=== PATIENT | male | born 1950 | race Caucasian/White ===

== ENCOUNTER 2024-01-03 16:37 | Inpatient (IN) | payer MEDICARE, SELFPAY ==
[2024-01-03] VITALS (15 sets, daily range): BP systolic 79–98; BP diastolic 55–74; BMI 19.5; BMI 20.3; BMI 20.8
[2024-01-03 12:46] LABS: % Basophils 0.6 % (0-2); % Eosinophils 0.9 % (0-6); % Immature Granulocytes 0.5 % (0-0.5); % Lymphocytes 15.7 % (20.5-51.1); % Monocytes 5.6 % (1.7-9.3); % Neutrophils 76.7 % (42.2-75.2); Absolute Basophils 0.1 10^3/uL (0-0.2); Absolute Eosinophils 0.1 10^3/uL (0-0.7); Absolute Lymphocytes 1.3 10^3/uL (1.2-3.4); Absolute Monocytes 0.5 10^3/uL (0.1-0.6); Absolute Neutrophils 6.3 10^3/uL (1.4-6.5); Hematocrit 42.4 % (39.0-52.0); Hemoglobin 13.4 g/dL (13.0-18.0); Mean Corp Hgb Conc. 31.6 g/dL (33.0-37.0); Mean Corpuscular Hgb 25.7 pg (27.0-31.0); Mean Corpuscular Volume 81.4 fL (80.0-94.0); Mean Platelet Volume 10.6 fL (7.4-10.4); Nucleated Red Blood Cells % 0 % (-); Platelet Count 205 10^3/uL (130-400); Red Blood Cell Count 5.21 10^6/uL (4.70-6.10); Red Cell Dist. Width 25.6 % (11.5-14.5); White Blood Cell Count 8.2 10^3/uL (4.8-10.8)
[2024-01-03 13:09] LABS: ALT (SGPT) 16 U/L (0-50); AST (SGOT) 25 U/L (17-59); Albumin 4.3 g/dl (3.5-5.0); Alkaline Phosphatase 68 U/L (38-126); Blood Urea Nitrogen 43 mg/dl (9-20); Calcium 9.3 mg/dl (8.4-10.2); Carbon Dioxide 27 mmol/L (22-30); Chloride 98 mmol/L (98-107); Glucose 109 mg/dl (70-99); Potassium 5.4 mmol/L (3.5-5.1); Sodium 133 mmol/L (135-145); Total Bilirubin 1.6 mg/dl (0.2-1.3); Total Protein 6.6 g/dl (6.3-8.2); eGFR 41.78
--- NOTE | 2024-01-03 13:20 | ED.GENMED ---
History of Present Illness
General
Chief Complaint: Blood Pressure Problem
Source: patient and records
Exam Limitations: none
Time Seen by Provider: 01/03/24 13:19
Nursing documentation reviewed up to this point in time: agreed with
Travel History
Have you had any contact with someone who has COVID-19?: No
Do you have any symptoms of coronavirus? Fever > 100 degrees, chills, cough, shortness of breath, sore throat, loss of taste or smell, muscle aches, or headache?: No
History of Present Illness
History of Present Illness:
73-year-old male past medical history of A-fib on Eliquis, GERD, CHF on daily Lasix presenting emergency department today with concerns of low blood pressure. Patient states that he has had lower blood pressure for the past few months. Patient
states that he normally lives at 100 systolically, however this morning when he took his blood pressure, he noticed that his blood pressure was 70/62 and he felt super dizzy and lightheaded. He states that a lot of [place] are in the [place] but he was down this way for his 's appointment and he states he was too weak to drive home. He also notes a decreased appetite, abdominal pain, nausea that he has had for many months, he is currently being worked up for possible stomach
cancer and has a endoscopy scheduled and abdominal CT scheduled. Patient denies fevers or chills, chest pain, shortness of breath.
Past History
Past History
ED Past Medical History: Arrthythmia (Atrial fibrillation), Cancer (Bladder), CHF, GERD, HTN, Hypercholesterolemia, NIDDM and Other (Peptic ulcer disease, anemia, kidney stones, polyps, gastric bypass)
Review of Systems
Review of Systems
All Other Systems: ROS reviewed and negative except as documented in HPI and ROS
Phy Exam
Physical Exam
Physical Exam:
Vitals: Patient is hypotensive, otherwise his vitals are stable. He is afebrile.
General: Patient appears chronically ill but in no acute distress
Skin: Patient's skin is pale, but no rashes or lesions
Head: Normocephalic, atraumatic
Eyes: Sclera nonicteric
Cardiac: Regular rate and rhythm with no murmurs, rubs, or gallops
Peripheral vascular: No lower extremity swelling, 2+ results pedis pulses bilaterally
Pulm: Normal respiratory effort, no wheezes, rales, rhonchi heard on exam
Abdomen: Patient is no abdominal tenderness palpation, no palpable masses
Neuro: Cranial nerves II-XII intact, no focal neurologic deficits.
Psychiatric: Appropriate mood and affect
Course
Orders/Labs/Results
Orders:
Orders
01/03/24 12:37
Complete Blood Count/With Diff Urgent
Comprehensive Metabolic Panel Urgent
01/03/24 13:46
Electrocardiogram (*1) Urgent
Reason for Study: Fatigue / Weakness
EKG- Treatment ONCE
01/03/24 13:58
Lactic Acid Urgent
Blood Culture Q30M
JENNIFER Source: Blood/Venous
Specimen Description:
Blood Culture Q30M
JENNIFER Source: Blood/Venous
Specimen Description:
Abnormal Lab Results
01/03/24
12:37
MCH 25.7 L pg
(27.0-31.0)
MCHC 31.6 L g/dL
(33.0-37.0)
RDW 25.6 H %
(11.5-14.5)
MPV 10.6 H fL
(7.4-10.4)
Neutrophils % 76.7 H %
(42.2-75.2)
Lymphocytes % 15.7 L %
(20.5-51.1)
Sodium 133 L mmol/L
(135-145)
Potassium 5.4 H mmol/L
(3.5-5.1)
BUN 43 H mg/dl
(9-20)
Creatinine 1.7 H mg/dL
(0.7-1.3)
Glucose 109 H mg/dl
(70-99)
Total Bilirubin 1.6 H mg/dl
(0.2-1.3)
01/03/24 12:37
01/03/24 12:37
Vital Signs
Initial and Last Documented VS:
Initial Vital Signs
Temp Pulse Resp BP
97.6 F 71 20 93/61
01/03/24 12:27 01/03/24 12:27 01/03/24 12:27 01/03/24 12:27
Last Documented Vital Signs
Temp Pulse Resp BP Pulse Ox
97.6 F 60 19 81/55 98
01/03/24 12:27 01/03/24 14:00 01/03/24 14:00 01/03/24 14:00 01/03/24 13:30
MDM/Problems Addressed
Differential Diagnosis Includes:
ddx include autonomic instability, POTS, polypharmacy, acute heart failure, renal insufficiency, adrenal insufficiency stomach cancer, symptomatic anemia
MDM/Problems Addressed:
weakness, abdominal pain, nausea, vomiting, hypotension
Chronic conditions affecting care: DM, HTN, CAD and Arrhythmia
Acute Exacerbation and/or Progression of Chronic Illness: DM, HTN, CAD and Arrhythmia
*Pulse Oximetry
Patient hypoxic: no
*EKG
Interpreted by ED Provider?: Yes
EKG Intrepretation Date: 01/03/24
Interpretation: abnormal
Comparison EKG: no comparison EKG present
Heart Rate: 68
Rate: normal
Rhythm: a-fib
[place]: normal axis
Interval: normal interval, normal QT interval and normal IL interval
QRS Pattern: normal QRS
Ischemia: no ischemia
*Tire Care Manager Interpretation
Rate: bradycardiac
Interpretation: abnormal
Heart Rate: 55
Rhythm: a-fib
*Critical Care Note
Total Time (30-74mins, 75-104mins- exclusive of procedures): Not Applicable
Data Reviewed
Review of Other/Old Records Reveals: Records and Discharge Summary (reviewed discharge summary from 07/13/23)
Patient Management
Escalation/DeEscalation of care consider admission/obs:
73-year-old male past medical history of A-fib on Eliquis, GERD, CHF on daily Lasix presenting emergency department today with concerns of low blood pressure. Patient states that he has had lower blood pressure for the past few months. Patient
states that he normally lives at 100 systolically, however this morning when he took his blood pressure, he noticed that his blood pressure was 70/62 and he felt super dizzy and lightheaded. Patient also has a variety of chronic symptoms including
abdominal pain, nausea, vomiting, significant weight loss and is currently being worked up for possible stomach cancer. Here in the emergency department, patient's CV see is unremarkable. However, his CMP demonstrates hyperkalemia, and elevated
BUN to creatinine ratio, with DEVIN. Due to his ongoing weakness, hypotension and DEVIN, we will admit patient for further workup and fluid therapy. Patient accepted by hospitalist
ED Attending Note
-
Portions of this chart may have been created with voice recognition software.� Occasional wrong word or��sound alike� substitutions may have occurred due to the inherent limitations of voice recognition software.
Discharge Plan
Departure
Patient Disposition: Admit
Date of Disposition: 01/03/24
Time of Disposition: 15:02
Admit to: Med/Surg
Admit to doctor: Dr. Linton
Presentation/result/management discussed w/ accepting MD/DO: Hospitalist
Patient with high blood pressure during this ER visit?: No
Condition: Fair
Discharge Problem:
Acute kidney injury, Weakness, Hypotension
Prescriptions:
No Action
atorvastatin 40 mg Tablet
40 mg PO HS
cyanocobalamin (vitamin B-12) 100 mcg Tablet
100 mcg PO DAILY
potassium chloride [Klor-Con 10] 10 mEq Tablet Extended Release
10 meq PO BID
carvedilol 3.125 mg Tablet
3.125 mg PO BID
ascorbic acid (vitamin C) [Vitamin C] 500 mg Tablet
500 mg PO DAILY
brimonidine 0.2 % Drops
1 drp BOTH EYES HS
vitamin B complex Tablet
1 tab PO DAILY
mirtazapine 15 mg Tablet
15 mg PO HS
timolol maleate 0.5 % Drops
1 drp BOTH EYES HS
pantoprazole 40 mg Tablet,Delayed Release (Dr/Ec)
40 mg PO BID 30 Days Qty: 60 0RF
lisinopril 2.5 mg tablet
2.5 mg PO DAILY Qty: 30 0RF
furosemide [Lasix] 40 mg tablet
40 mg PO DAILY Qty: 30 0RF
sucralfate 1 gram tablet
1 g PO ACHS Qty: 90 0RF
aspirin 81 mg Tablet,Delayed Release (Dr/Ec)
81 mg PO DAILY
dorzolamide 2 % Drops
1 drp BOTH EYES HS
Referrals:
NONE,* [Family Provider] -
Interventions
Interventions:
*Risk Screen - Suicide Last Done: 01/03/24 13:30
*General Assessment Last Done: 01/03/24 13:30
*Neglect/Abuse Screening Last Done: 01/03/24 13:30
ED- Fall Risk Assessment Last Done: 01/03/24 13:30
*ED COVID-19 Vaccine History Last Done: 01/03/24 12:27
ED- Cardiac Assessment Last Done: 01/03/24 13:30
ED- Neurological Assessment Last Done: 01/03/24 13:30
ED- Pulmonary Assessment Last Done: 01/03/24 13:30
Discharge Date and Time
Print Language: ANDORRAN
[2024-01-03 14:43] LABS: Lactic Acid 1.6 mmol/L (0.7-2.0)
--- NOTE | 2024-01-03 15:38 | HPS.HSE ---
Family Physician
-
Family Physician: * NONE
Chief Complaint
-
Acute on chronic hypotension, loss of appetite with nausea, left-sided abdominal pain
History of Present Illness
HPI: 73-year-old male past medical history notable of A-fib, GERD, CHF; p/w low blood pressure. Patient states that he has chronic low blood pressure (normally systolic in the 100s), however in the morning when he took his blood pressure, he noticed
that his blood pressure was 70/62 and he felt dizzy and lightheaded. He follows at [facility]. He drove his down for her appointment, but is now too weak to drive back.
He endorsed to significant weight loss (30 pounds) in the last 2 weeks, and chronic L sided abdomen pain, associated with significant loss of appetite, nausea and occasional vomiting.
He has been unable to keep down any p.o. meds due to nausea and vomiting.
He is seeing oncologist at [facility], and is currently being worked up for possible stomach cancer; pending endoscopy and abdominal CT.
He denies to fever/chills, chest pain, shortness of breath.
He mentioned that he recently (2 weeks ago) got a tick bite on his left thigh area.
Medical History
Past Medical History
Past Medical History: Reports Other (atrial fibrillation, CAD status post stents, CHF, bladder cancer, hypertension, GERD, peptic ulcer disease, pre-cancerous colonic polyps, gastric bypass, hypercholesteremia, kidney stones, anemia)
Past Surgical History: Reports None
Social History
Tobacco: Former Smoker
Alcohol: Occasional
Personal:
Living: With Family
Family History
Family History: Not pertinent
Allergies / Home Medications
Allergies reflects when Allergies were last updated in [facility].
Home Medications with original date entered in [facility]
Allergy/Medication List:
Allergies
Allergy/AdvReac Type Severity Reaction Status Date / Time
No Known Allergies Allergy Unverified 01/03/24 12:28
Home Medications
ascorbic acid (vitamin C) 500 mg tablet (Vitamin C) 500 mg PO DAILY Supplement 07/07/23
atorvastatin 40 mg tablet 40 mg PO HS High Cholesterol 07/07/23
brimonidine 0.2 % eye drops 1 drp BOTH EYES HS Eye Condition 07/07/23
carvedilol 3.125 mg tablet 3.125 mg PO BID Blood Pressure 07/07/23
cyanocobalamin (vitamin B-12) 100 mcg tablet 100 mcg PO DAILY Supplement 07/07/23
mirtazapine 15 mg tablet 15 mg PO HS Mental Health/Anxiety 07/07/23
potassium chloride 10 mEq tablet,extended release (Klor-Con) 10 meq PO BID Electrolyte Repletion 07/07/23
timolol maleate 0.5 % eye drops 1 drp BOTH EYES HS Eye Condition 07/07/23
vitamin B complex 1 tab PO DAILY Supplement 07/07/23
furosemide 40 mg tablet (Lasix) 40 mg PO DAILY #30 tabs 07/13/23
lisinopril 2.5 mg tablet 2.5 mg PO DAILY #30 tabs 07/13/23
pantoprazole 40 mg tablet,delayed release 40 mg PO BID 30 days #60 tabs 07/13/23
sucralfate 1 gram tablet 1 g PO ACHS #90 tabs 07/13/23
aspirin 81 mg tablet,delayed release 81 mg PO DAILY 01/03/24
dorzolamide 2 % eye drops 1 drp BOTH EYES HS 01/03/24
Review of Systems
-
Abdomen/GI: Reports See HPI, Abdominal Pain and Nausea
Physical Exam
Vital Signs
Vital Signs
Temp Pulse Resp BP Pulse Ox
36.4 C 50 19 87/60 98
01/03/24 12:27 01/03/24 15:37 01/03/24 15:37 01/03/24 15:37 01/03/24 13:30
Physical Exam
General: Well Developed, No Apparent Distress, Comfortable, Conversant, Appears Chronically Ill and Cachectic
HEENT: NormoCephalic and Atraumatic
Respiratory: Clear
Cardiac: S1/S2 and Irregular Rhythm; No Murmur or Rub
GI: Soft, Non Tender, Non Distended and Other (Scaphoid abdomen); No Organomegaly
Rectal: Deferred by Provider
Musculoskeletal: No Clubbing, No Cyanosis and No Edema
Skin: No Rash
Neuro: Awake
Psych: Calm and Intact Judgment/Insight
Laboratory Results
-
01/03/24 12:37
01/03/24 12:37
Laboratory Results
Lactic Acid 1.6 mmol/L (0.7-2.0) 01/03/24 13:58
Total Bilirubin 1.6 mg/dl (0.2-1.3) H 01/03/24 12:37
AST 25 U/L (17-59) 01/03/24 12:37
ALT 16 U/L (0-50) 01/03/24 12:37
Alkaline Phosphatase 68 U/L (38-126) 01/03/24 12:37
Data Reviewed
-
Lab Data: Labs Reviewed by me
Impression/Plan
-
HPI: 73-year-old male past medical history notable of A-fib, GERD, CHF; p/w low blood pressure. Patient states that he has chronic low blood pressure (normally systolic in the 100s), however in the morning when he took his blood pressure, he noticed
that his blood pressure was 70/62 and he felt dizzy and lightheaded. He follows at [facility]. He drove his down for her appointment, but is now too weak to drive back.
He endorsed to significant weight loss (30 pounds) in the last 2 weeks, and chronic L sided abdomen pain, associated with significant loss of appetite, nausea and occasional vomiting.
He has been unable to keep down any p.o. meds due to nausea and vomiting.
He is seeing oncologist at [facility], and is currently being worked up for possible stomach cancer; pending endoscopy and abdominal CT.
He denies to fever/chills, chest pain, shortness of breath.
He mentioned that he recently (2 weeks ago) got a tick bite on his left thigh area.
A/P:
# Acute on chronic hypotension
Admit for workup for acute hypotension
Check CRP, TSH reflex FT4, random cortisol level
Follow blood Cx, check UA reflex Cx
Check Lyme serology given patient complained of recent tick bite.
Will give 500 NSS IVF bolus and continue maintenance (gentle) IVF- using gentle IV fluid given patient has history of CHF and is on Lasix at home
Hold DEVELOPMENT ADMINISTRATOR lasix
PT OT eval for weakness
# decreased appetite, abdominal pain, nausea and possibly vomiting
# Severe protein caloric malnutrition
He follows oncology at [place]
He is awaiting work up for possible stomach cancer with an endoscopy and abdominal CT
Of note, patient had an upper endoscopy 07/10 which noted [place]-colored mucosa suspicious for short-segment Noble's esophagus. Normal stomach and anastomosis. Non-bleeding jejunal ulcer with no stigmata of bleeding.
Could consider obtaining CT AP, but would like to await serum creatinine to normalize first (given would need CT with contrast)
Continue prior to admission mirtazapine
# Likely DEVIN from dehydration/poor p.o. intake
serum creatinine 1.7, baseline from 06/2023 at 1.0
IVF as above
Hold prior to admission Lasix and low-dose lisinopril
Chronic medical conditions
# History of peptic ulcer disease/GERD
# History of gastric bypass
Continue prior to admission Protonix twice daily and Carafate
# Atrial fibrillation unspecified type
Hold DEVELOPMENT ADMINISTRATOR coreg
He no longer is on Eliquis due to cost (his outpatient automatic glove turner and former is aware of this, and is okay with holding off Eliquis)
# Coronary disease status post stents x2
# Chronic heart failure unspecified type
Hold DEVELOPMENT ADMINISTRATOR coreg and lasix due to hypotension
# Essential hypertension
Hold BP lowering meds with acute on chronic hypotension
# Bladder cancer
# Hypercholesterolemia
Continue statin
# History of kidney stones
# Anxiety/depression
Continue mirtazapine
# History of gastric bypass surgery 6 years ago
Full code
DVT prophylaxis� HSQ
[2024-01-03] MEDS: NSS 250 IV (16:24)
[2024-01-03 16:55] LABS: COVID-19 Antigen Negative (Negative)
[2024-01-03] MEDS: NSS 1000 IV (17:01)
[2024-01-03 17:32] LABS: Urine Albumin Trace (Neg - Trace); Urine Bilirubin Negative (Negative); Urine Character Slightly Cloudy (Clear); Urine Color Yellow; Urine Glucose Negative (Negative); Urine Ketone Negative (Negative); Urine Leukocyte 2+ (Negative); Urine Nitrite Negative (Negative); Urine Occult Blood Negative (Negative); Urine Urobilinogen Negative (Neg - 1+)
[2024-01-03 17:46] LABS: Urine Hyaline Cast 0-2 /LPF (0-2)
[2024-01-03 17:47] LABS: Urine Bacteria Few (Negative); Urine White Cell 30-40 /HPF (0-5)
[2024-01-03 17:59] LABS: TSH Reflex To Free T4 1.44 uIU/ml (0.47-4.68)
[2024-01-03 18:17] LABS: C-Reactive Protein < 5.00 mg/L (0.0-10.00)
[2024-01-03] MEDS: PROTONIX 40 MG PO (20:22)
[2024-01-03] MEDS: HEPARIN 5000 UNITS SC (20:22)
[2024-01-03] MEDS: LIPITOR 40 MG PO (20:22)
[2024-01-03] MEDS: CARAFATE 1 GRAM PO (20:22)
--- NOTE | 2024-01-03 20:57 | SUR.PHASEI ---
Rec'd pt from ED as new admission. Pt AAOx3, BP low as documented, 88/59, afib with rate 60s-70s. Pt denies SOB, but does c/o back, stomach and rib pain. Also c/o shooting pain down both of his legs, which he describes as feeling like electricity.
Pt has poor peripheral perfusion with the tips of the fingers on his left hand pale and cold. Pulses weak on palpation. IVF running through RUE IV as prescribed. Call whitehead within reach. Pt oriented to unit and safety mechanisms in place.
[2024-01-03] MEDS: ALPHAGAN 0.2% EYE DROPS 1 DROP BOTH EYES (21:32)
[2024-01-03] MEDS: REMERON 15 MG PO (21:32)
[2024-01-03] MEDS: TIMOPTIC 0.5% OPHTHALMIC SOLUTION 1 DROP BOTH EYES (21:32)
[2024-01-03] MEDS: TRUSOPT 2% OPHTHALMIC SOLUTION 1 DROP BOTH EYES (21:32)
[2024-01-03] MEDS: CARAFATE PO (21:33)
[2024-01-04] VITALS (43 sets, daily range): BP systolic 73–115; BP diastolic 51–80; BMI 20.8
--- NOTE | 2024-01-04 03:48 | PTCARENOTE ---
Addendum entered by Cira Valencia 01/04/24 05:28:
Low temperatures noted rectally. MICRO COMPUTER DATA PROCESSOR notified and awaiting orders
Original Note:
Pt experiencing bradycardia as low as 32. Pt denies chest pain, dizziness, SOB, but c/o being very tired. Requests orange juice. MAU Hephzeva notified of pt condition
--- NOTE | 2024-01-04 03:59 | W.PN.UPDATE ---
Addendum entered and electronically signed by MAU Garza 01/04/24 06:13:
RN notified temp of 95.7, BP 84/66 HR 47 95% RA. rR 18. K 5.5, will order. Patient seen and evaluated. Ox3, reports feeling cold and feeling dizzy with repositioning. States pain at the pubic area, difficulty with urinating, last urinated last
evening, Denies any chest pain or shortness of breath, no open wounds. will order Lokelma PO x1, Midodrine PO 5mg stat, stat Lactic acid, UA to culture, Bladder scan. Brittney jones. possible sepsis.
Patient states he is supposed to be meeting with premises technician today at [facility], prefers Cardiologists at [facility] to take care of any thing if need to done.
Original Note:
Update Note
Progress Note Update
RN notified POLICE ACADEMY INSTRUCTOR. Patient's HR went down to 30's, ranging between 30's-50's, BP 105/66, not on any antihypertensives. Per patient he had stopped Coreg few weeks ago. patient notified RN, patient was scheduled meeting with Cardiolotist tomorrow for a
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 Patient c/o of dizziness otherwise, will draw labs early. EKG now. Can consult premises technician needed.
[2024-01-04 04:14] LABS: Blood Urea Nitrogen 40 mg/dl (9-20); Calcium 8.5 mg/dl (8.4-10.2); Carbon Dioxide 24 mmol/L (22-30); Chloride 104 mmol/L (98-107); Estimated Creatinine Clearance 45 ml/min; Glucose 80 mg/dl (70-99); Magnesium 2.5 mg/dl (1.6-2.3); Potassium 5.5 mmol/L (3.5-5.1); Sodium 133 mmol/L (135-145); eGFR 57.65
[2024-01-04 04:23] LABS: Hematocrit 39.8 % (39.0-52.0); Hemoglobin 12.5 g/dL (13.0-18.0); Mean Corp Hgb Conc. 31.4 g/dL (33.0-37.0); Mean Corpuscular Hgb 26.2 pg (27.0-31.0); Mean Corpuscular Volume 83.3 fL (80.0-94.0); Mean Platelet Volume 10.6 fL (7.4-10.4); Platelet Count 155 10^3/uL (130-400); Red Blood Cell Count 4.78 10^6/uL (4.70-6.10); Red Cell Dist. Width 25.3 % (11.5-14.5); White Blood Cell Count 7.4 10^3/uL (4.8-10.8)
[2024-01-04] MEDS: LOKELMA 5 GRAM PO (05:07)
[2024-01-04] MEDS: ProAmatine 5 MG PO ×3 (06:11→12:31)
[2024-01-04] MEDS: CARAFATE 1 GRAM PO ×3 (06:12→21:42)
[2024-01-04 06:19] LABS: Lactic Acid 2.3 mmol/L (0.7-2.0)
[2024-01-04] MEDS: DUONEB 3 ML INH (06:38)
[2024-01-04 07:39] LABS: Urine Albumin Trace (Neg - Trace); Urine Bilirubin Negative (Negative); Urine Character Slightly Cloudy (Clear); Urine Color Yellow; Urine Glucose Negative (Negative); Urine Ketone Negative (Negative); Urine Leukocyte 2+ (Negative); Urine Nitrite Negative (Negative); Urine Occult Blood Trace (Negative); Urine Urobilinogen Negative (Neg - 1+)
[2024-01-04 08:01] LABS: Urine Bacteria Few (Negative); Urine Red Blood Cell 0-2 /HPF (0-2); Urine White Cell 30-40 /HPF (0-5)
[2024-01-04] MEDS: PROTONIX 40 MG PO ×2 (08:23→21:42)
[2024-01-04] MEDS: VITAMIN B-12 100 MCG PO (08:23)
[2024-01-04] MEDS: ASPIR LOW (ENTERIC COATED) 81 MG PO (08:23)
--- NOTE | 2024-01-04 08:23 | W.PN.HOSP.TC ---
Addendum entered and electronically signed by Lucy Linton MD 01/04/24 11:43:
added Flomax with holding parameter (hold for SBP < 110)
d/w Card
Although felt acute infectious cause less likely with neg CRP, Ok to start empiric Abx Ceftriaxone while await culture results.
Addendum entered and electronically signed by Lucy Linton MD 01/04/24 09:06:
# possible urinary retention form BPH
bladder scan 380 cc, RN unable to straight cath (lots of resistance).
Add finasteride, would not use Flomax until BP improves
for now, cont to monitor
Original Note:
Today's Communication/Plan
-
see A/P
Assessment / Plan
Assessment / Plan
HPI: 73-year-old male past medical history notable of A-fib, GERD, CHF; p/w low blood pressure. Patient states that he has chronic low blood pressure (normally systolic in the 100s), however in the morning when he took his blood pressure, he noticed
that his blood pressure was 70/62 and he felt dizzy and lightheaded. He follows at [facility]. He drove his down for her appointment, but is now too weak to drive back.
He endorsed to significant weight loss (30 pounds) in the last 2 weeks, and chronic L sided abdomen pain, associated with significant loss of appetite, nausea and occasional vomiting.
He has been unable to keep down any p.o. meds due to nausea and vomiting.
He is seeing oncologist at [facility], and is currently being worked up for possible stomach cancer; pending endoscopy and abdominal CT.
He denies to fever/chills, chest pain, shortness of breath.
He mentioned that he recently (2 weeks ago) got a tick bite on his left thigh area.
A/P:
# Acute on chronic hypotension likely due to dehydration
CRP neg, TSH WNL at 1.44, random cortisol level WNL at 24
Since CRP neg, infectious cause less likely
can still follow up blood Cx and urine Cx that were sent
COVID negative
Follow Lyme serology (patient endorsed recent tick bite).
s/p IVF with improved BP, observe off additional IVF given he has history of CHF and is on Lasix at home
Hold ECONOMICS TEACHER lasix
PT OT eval for weakness
# decreased appetite, abdominal pain, nausea and possibly vomiting
# Severe protein caloric malnutrition
He follows oncology at [place]
He is awaiting work up for possible stomach cancer with an endoscopy and abdominal CT
Of note, patient had an upper endoscopy 07/10 at which noted [place]-colored mucosa suspicious for short-segment Noble's esophagus. Normal stomach and anastomosis. Non-bleeding jejunal ulcer with no stigmata of bleeding.
Could consider obtaining CT AP, but would like to await serum creatinine to normalize first (given would need CT with contrast)
Continue prior to admission mirtazapine
# DEVIN from dehydration/poor p.o. intake, resolved
serum creatinine 1.7 -> 1.3, baseline from 06/2023 at 1.0
s/p IVF as above
Hold prior to admission Lasix and low-dose lisinopril
# Bradycardia with likely chronic A fib
HR in the 30's overnight
EKG with A fib but slow HR
Check echo
Card CS
Pt informed that he prefers cardiac work up at [facility]
# Mild Hyponatremia
Monitor
# Mild hyperkalemia
K level at 5.5, s/p Lokelma
# Hypothermia likely due to poor body reserve with severe protein caloric malnutrition on admission
rebecca hugger PRN
Chronic medical conditions
# History of peptic ulcer disease/GERD
# History of gastric bypass
Continue prior to admission Protonix twice daily and Carafate
# Atrial fibrillation unspecified type
Hold ECONOMICS TEACHER coreg
He no longer is on Eliquis due to cost (his outpatient dispensing audiologist is aware of this, and is okay with holding off Eliquis)
# Coronary disease status post stents x2
# Chronic heart failure unspecified type
Hold ECONOMICS TEACHER coreg and lasix due to hypotension
# Essential hypertension
Hold BP lowering meds with acute on chronic hypotension
# Bladder cancer
# Hypercholesterolemia
Continue statin
# History of kidney stones
# Anxiety/depression
Continue mirtazapine
# History of gastric bypass surgery 6 years ago
Full code
DVT prophylaxis� HSQ
DW RN
CC Mx for bradycardia
Anticipated Discharge: 24 - 48 hours
Subjective/Interval History
-
Date of Service: January 04, 2024
Objective Data
-
Labs:
Laboratory Results
01/04/24 01/04/24
03:31 04:15
WBC 7.4
Hgb 12.5 L
Hct 39.8
Plt Count 155 D
Sodium 133 L
Potassium 5.5 H
Chloride 104
Carbon Dioxide 24
BUN 40 H
Creatinine 1.3
Glucose 80
Calcium 8.5
Vital Signs:
Vital Signs
Temp Pulse Resp BP Pulse Ox
35.6 C L 42 16 90/62 99
01/04/24 07:24 01/04/24 07:00 01/04/24 07:00 01/04/24 07:00 01/04/24 07:00
I&O
01/03/24 01/04/24 01/05/24
06:59 06:59 06:59
Output Total 350 / 350
Balance -350 / -350
Review of Systems
-
All other systems: Reviewed and negative
Physical Exam
-
General: Well Developed, No Apparent Distress, Comfortable, Conversant and Cachectic
HEENT: Normocephalic and Atraumatic
Respiratory: Clear to Auscultation and Non Labored Respirations; Negative Wheezes, Rales, Rhonchi or Accessory Resp Muscle Use
Cardiac: S1/S2, Irregular Rhythm and Bradycardic
GI: Soft, Nontender, Nondistended and Normal Bowel Sounds
Musculoskeletal: No Clubbing, No Cyanosis and No Edema
Skin: Warm and Dry
Neuro: Awake, Alert and Oriented
Psych: Calm and Intact Judgement/Insight
Data Reviewed
-
Labs: Labs Reviewed by me
[2024-01-04] MEDS: HEPARIN 5000 UNITS SC ×2 (08:25→21:41)
[2024-01-04] MEDS: PROSCAR 5 MG PO (09:33)
--- NOTE | 2024-01-04 09:54 | CON.CAR ---
Addendum entered and electronically signed by Blaine Edward MD 01/04/24 11:28:
I saw and examined the patient.
The BMX RIDER's note was reviewed and I agree with the note.
Also reviewed issues with patient's who is at bedside.
73-year-old male with a history of coronary artery disease, history of left circumflex stenting 2014, chronic RCA occlusion, cardiomyopathy with patient reporting ejection fraction 30%. Patient had a previously noted ejection fraction 45 to 50%
2012, permanent atrial fibrillation not on anticoagulation due to history of bleeding, history of lung lobectomy. Gastric bypass and bladder cancer. Patient presented with nausea lightheadedness weakness. He has had recurrent issues with nausea
and vomiting. Difficulty eating and vomiting after meals. He reports losing 30 pounds in a short interval of time. No fevers. He has dysuria and difficulty urinating. He has a prior history of UTIs. In addition to the above he has had some
chest/epigastric discomfort which is worse with hiccups. Currently actively hiccuping.
-Fatigue, weakness lightheadedness nausea may all be multifactorial. Poor p.o. intake and possible underlying infection may be contributing.
-Check blood cultures and consider treatment for possible UTI.
-Volume replacement with close monitoring for heart failure.
-Echo
-Will address additional issues as noted below
-Chest discomfort component sound consistent with GI issues and also may have a musculoskeletal component related to vomiting. Patient's symptoms clearly worse when he hiccups. He does have underlying
Coronary artery disease. ECG without ischemic changes. Will check serial troponins treatment of GI issues as directed by GI and hospitalist
-Bradycardia atrial fibrillation with slow ventricular response heart rate in the 40s. No long pauses. Beta-viridiana and increased vagal tone with GI issues may be contributing. Currently without clear indication for pacing. Even if he did meet
criteria for pacing would need to hold off on permanent pacemaker until we are sure he did not have infection.
Continue to hold Coreg
Monitor on telemetry
If patient need any additional blood pressure or heart rate support would consider dopamine.
-Vomiting and weight loss. Treatment directed by GI.
Original Note:
Consultation
Consultation Request
Date/Time Consultation Requested: 01/04/24 0729
Date/Time Consultation Performed: 01/04/24 1000
Requesting Provider: Dr. Linton
Performing Provider: Josette LEÓN for Dr. Edward
Reason for Consultation: bradycardia
Medical History
-
Chief Complaint: light-headed, dizzy, nausea
History of Present Illness:
73 y/o male with CAD s/p stenting (2014 mid LCX, obtuse marginal branc), 100% RCA occlusion with collaterals, ICM with EF 45-50 (06/2013), but patient tells me more recent echo showed EF 30% (Dr. Tavarez accounting methods analyst [facility]), permanent AFIB
(not currently on OAC with hx bleeding/cost per patient) with plan for watchman ([facility]), dyslipidemia, hx lung resection (due to blebs causing pneumo), bladder ca, glaucoma who is here since yesterday he felt light-headed, dizzy, and
nauseated. He has also had chills. This AM he reports mild chest pressure.
Past Medical History
Past Medical History: Arrhythmias, CAD, Cancer, CHF, Hypercholesterolemia and Other (hx lung resection due to blebs/pneumo)
Social History
Personal:
Living: With Family
Family History
Family History: Reviewed & Not Pertinent
Allergies / Home Medications
Allergy/AdvReac Type Severity Reaction Status Date / Time
No Known Allergies Allergy Unverified 01/03/24 12:28
�Medication �Instructions �Recorded �Confirmed �Type
ascorbic acid (vitamin C) 500 mg 500 mg PO DAILY Supplement 07/07/23 01/03/24 History
tablet (Vitamin C)
atorvastatin 40 mg tablet 40 mg PO HS High Cholesterol 07/07/23 01/03/24 History
brimonidine 0.2 % eye drops 1 drp BOTH EYES HS Eye Condition 07/07/23 01/03/24 History
carvedilol 3.125 mg tablet 3.125 mg PO BID Blood Pressure 07/07/23 01/03/24 History
cyanocobalamin (vitamin B-12) 100 100 mcg PO DAILY Supplement 07/07/23 01/03/24 History
mcg tablet
mirtazapine 15 mg tablet 15 mg PO HS Mental Health/Anxiety 07/07/23 01/03/24 History
potassium chloride 10 mEq 10 meq PO BID Electrolyte Repletion 07/07/23 01/03/24 History
tablet,extended release (Klor-Con)
timolol maleate 0.5 % eye drops 1 drp BOTH EYES HS Eye Condition 07/07/23 01/03/24 History
vitamin B complex 1 tab PO DAILY Supplement 07/07/23 01/03/24 History
furosemide 40 mg tablet (Lasix) 40 mg PO DAILY #30 tabs 07/13/23 01/03/24 Rx
lisinopril 2.5 mg tablet 2.5 mg PO DAILY #30 tabs 07/13/23 01/03/24 Rx
pantoprazole 40 mg tablet,delayed 40 mg PO BID 30 days #60 tabs 07/13/23 01/03/24 Rx
release
sucralfate 1 gram tablet 1 g PO ACHS #90 tabs 07/13/23 01/03/24 Rx
aspirin 81 mg tablet,delayed 81 mg PO DAILY 01/03/24 01/03/24 History
release
dorzolamide 2 % eye drops 1 drp BOTH EYES HS 01/03/24 01/03/24 History
Review of Systems
-
History Source: Patient
All other systems: Negative unless noted
Constitutional: Weight Loss and Chills
Cardiac: Chest Pain
Abdomen/GI: Nausea, Vomiting and Constipated
: Difficulty Voiding
Neurological: Dizzy
Physical Exam
Vital Signs
Temp Pulse Resp BP Pulse Ox
97.2 F 42 16 90/62 99
01/04/24 08:00 01/04/24 07:00 01/04/24 07:00 01/04/24 07:00 01/04/24 07:00
Lab Results
01/04/24 04:15
01/04/24 03:31
Physical Exam
General: No Apparent Distress
Respiratory: Non Labored Respirations and Other (no wheezes or rhonchi)
Cardiac: Irregular Rhythm
Neuro: AO x 3
Psych: Calm
Impression / Plan
-
Dizziness:
-hypotensive and bradycardic on arrival. Hold Coreg, lisinopril. Will also hold BB eye drops. Follow tele. Denies syncope. HR 30's-40's. Patient hypothermic. Sepsis is possibility. Check procal. Issues with urination- management per primary team-
may need urology. Fluids given. TSH and cortisol normal. Lyme pending with recent tick bite. Otherwise, midodrine was started.
N/V:
-present for months, has had significant weight loss
-patient reports there has been plan for GI w/u as OP ([facility])
-management per primary
Chest discomfort:
-EKG stable
-could be GI related, but does have hx coronary disease- recheck LFT's
-check trops
-echo pending
ICM:
-EF 45-50% on most recent echo here, but patient thinks EF 30% on recent echo at [facility]- request records
-hold lasix, coreg, lisinopril
-monitor volume with fluids, but is not overloaded at this time
Hyperkalemia:
-treatment per primary
-ACEI held
AFIB:
-permanent, slow rates as above- hold coreg
-not currently on OAC (which he reports he and his accounting methods analyst agreed upon)- he originally stopped because of cost in July, he tells me, but also has history of bleeding and plans for watchman). [id number] score at least 3 for CAD, CHF, age
Data Reviewed
-
EKG: Tracing Personally Visualized and interpreted (AFIB with SVR 44 BPM)
Medical Tests (Nuc Med, Echo etc): Report Reviewed by me (Echo 07/12/23: Mildly reduced left ventricular systolic function. Left ventricular ejection fraction is 45-50% by volumetric assessment. Inferior wall hypokinesis. Trace mitral
regurgitation.)
Labs: Labs Reviewed by me
--- NOTE | 2024-01-04 10:02 | PTCARENOTE ---
Assumed care of patient at beginning of this shift from previous RN with Brittney hugger in use and temp 96.1R. Brittney hugger off at 0800 when temp reached 97.2R. Lactic acid 2.3 at 0500; received patient with NSS at 60ml/hr. Dr Linton in to see patient,
made aware of LA; instructed to hold IVF at this time. Bladder scan 386; unable to void despite sitting on the side of the bed. Attempted to straight cath but met with a lot of resistance and unable to advance cath to bladder; patient c/o pain
throughout. He stated he has an enlarged prostate. Dr Linton made aware; ordered proscar and instructed to monitor at this time. BP 87/67-92/66 with MAP 70s; midodrine ordered and given. HR continues mostly 40s, but occasionally drops to 38; afib.
Patient then c/o chest pressure; EKG done per protocol; Dr Linton made aware. Josette Mcdaniels (cardiology) currently in to see patient and made aware. POx 95-97% on RA.
--- NOTE | 2024-01-04 11:56 | PTCARENOTE ---
Cardiology in to see patient; stat troponin ordered. Contacted Dr Linton via tiger text to see if repeat lactic acid would be ordered as patient is a very difficulty stick and would be better to cluster labs. No repeat ordered; Dr Linton stated she
entered for repeat tomorrow. Also made her aware patient was still without void at that time (11:19). Since then, patient voided 150ml. BP was 84/60 manually; currently 97/64.
[2024-01-04 12:29] LABS: ALT (SGPT) 13 U/L (0-50); AST (SGOT) 19 U/L (17-59); Alkaline Phosphatase 57 U/L (38-126); Amylase 69 U/L (30-110); Lipase 128 U/L (23-300)
[2024-01-04] MEDS: NSS 250 IV ×2 (12:31→14:39)
[2024-01-04] MEDS: FLOMAX PO ×2 (12:31→16:11)
[2024-01-04] MEDS: ROCEPHIN 1000 MG IV (12:32)
[2024-01-04] MEDS: STERILE WATER FOR INJECTION 10 ML IV (12:32)
[2024-01-04 12:33] LABS: Troponin I < 0.012 ng/ml
[2024-01-04] MEDS: TYLENOL 650 MG PO (12:46)
[2024-01-04 12:51] LABS: Procalcitonin < 0.05 ng/ml (0.0-0.25)
--- NOTE | 2024-01-04 14:57 | PTCARENOTE ---
Cude cath placed by urology.
--- NOTE | 2024-01-04 14:57 | PTCARENOTE ---
Dr Edward returned to see patient, mentioned transferring to ICU; ordered another IVF bolus. BP 80/59. Order entered by Dr Linton to t/f to ICU.
--- NOTE | 2024-01-04 15:09 | CONS.URO ---
Consultation
-
Performing Provider: Gregfer
Reason for Consultation: Difficult brown
Medical History
History of Present Illness
73M with prior history of possible bladder cancer s/p resection around 2 years ago with a urologist in [place]
He was told he does not need further surveillance at his last visit there. Unknown pathology or if it was actually a malignancy.
He does have some chronic voiding symptoms which he has been told can be due to enlarged prostate
Not on any meds at baseline
Over the past few days he noted some cloudy urine and its getting more difficult to void
Here he has PVR around 400cc and voiding with mostly drips
Nurse unable to straight cath
He is admitted for acute on chronic hypotension and dehydration/DEVIN with cardiac workup
He has some chronic L abdominal/flank pain of unknown source
He had a CT scan 06/2024 showing multiple b/l renal stones without obstruction
He denies fevers/chills
Does have nausea and poor appetite/hydration
Currently being transferred to ICU for hypotension
Past Medical History
Past Medical History: Other (atrial fibrillation, CAD status post stents, CHF, bladder cancer, hypertension, GERD, peptic ulcer disease, pre-cancerous colonic polyps, gastric bypass, hypercholesteremia, kidney stones, anemia)
Social History
Tobacco: Former Smoker
Alcohol: Occasional
Drug: None
Family History
Family History: Reviewed & Not Pertinent
Allergies/Home Medications
Allergies
Allergy/AdvReac Type Severity Reaction Status Date / Time
No Known Allergies Allergy Unverified 01/03/24 12:28
Home Medications
�Medication �Instructions �Recorded �Confirmed �Type
ascorbic acid (vitamin C) 500 mg 500 mg PO DAILY Supplement 07/07/23 01/03/24 History
tablet (Vitamin C)
atorvastatin 40 mg tablet 40 mg PO HS High Cholesterol 07/07/23 01/03/24 History
brimonidine 0.2 % eye drops 1 drp BOTH EYES HS Eye Condition 07/07/23 01/03/24 History
carvedilol 3.125 mg tablet 3.125 mg PO BID Blood Pressure 07/07/23 01/03/24 History
cyanocobalamin (vitamin B-12) 100 100 mcg PO DAILY Supplement 07/07/23 01/03/24 History
mcg tablet
mirtazapine 15 mg tablet 15 mg PO HS Mental Health/Anxiety 07/07/23 01/03/24 History
potassium chloride 10 mEq 10 meq PO BID Electrolyte Repletion 07/07/23 01/03/24 History
tablet,extended release (Klor-Con)
timolol maleate 0.5 % eye drops 1 drp BOTH EYES HS Eye Condition 07/07/23 01/03/24 History
vitamin B complex 1 tab PO DAILY Supplement 07/07/23 01/03/24 History
furosemide 40 mg tablet (Lasix) 40 mg PO DAILY #30 tabs 07/13/23 01/03/24 Rx
lisinopril 2.5 mg tablet 2.5 mg PO DAILY #30 tabs 07/13/23 01/03/24 Rx
pantoprazole 40 mg tablet,delayed 40 mg PO BID 30 days #60 tabs 07/13/23 01/03/24 Rx
release
sucralfate 1 gram tablet 1 g PO ACHS #90 tabs 07/13/23 01/03/24 Rx
aspirin 81 mg tablet,delayed 81 mg PO DAILY 01/03/24 01/03/24 History
release
dorzolamide 2 % eye drops 1 drp BOTH EYES HS 01/03/24 01/03/24 History
Physical Exam
Vital Signs
Vital Signs
Temp Pulse Resp BP Pulse Ox
98.8 F 49 16 92/58 100
01/04/24 13:56 01/04/24 13:00 01/04/24 13:00 01/04/24 13:00 01/04/24 13:00
Lab / Testing Results
Laboratory Results
01/04/24 04:15
01/04/24 03:31
Physical Exam
General: Well Developed, Well Nourished and No Apparent Distress
Respiratory: Clear and Non Labored Respirations
GI: Soft, Non Tender and Non Distended
Genito-urinary: No Costovertebral Tend and Other (normal penis and testicles)
Skin: Warm and Dry
Neuro: AO x 3
Psych: Calm and Intact Judgement
Assessment / Plan
-
73M admitted for acute on chronic hypotension of unclear etiology, chronic abdominal pain, DEVIN, urinary retention
Urology consulted for difficult brown
UTI
- Some symptoms of UTI/prostatitis a few days prior to admission with cloudy urine and development of retention
- Continue ceftriaxone pending culture
- Given hx of abdominal pain and known renal stones on CT 06/2023, recommend urgent CT to eval for obstructing stones associated with infection
- NPO until this is clarified
Urinary retention
- 18Fr coude catheter placed with 500cc clear yellow urine
- Maintain brown until nearing discharge - remove in early AM for trial of void with bladder scan
- Can start tamsulosin 0.4mg daily and continue through discharge if BP supports it. Would hold this until any hypotension concerns are resolved
Bladder cancer
- Unclear history from patient and family - he had something removed in [place] a few years ago but was told after he did not need any surveillance. This does not sound like bladder cancer
- Outpatient follow up to review records and schedule eventual cystoscopy
Data Reviewed
-
CT Scan: Image personally visualized and interpreted
Lab Data: Labs Reviewed
[2024-01-04 15:35] LABS: Lyme Antibody Screen, EIA Negative (Negative)
[2024-01-04] MEDS: DOPamine 400 MG 250 IV (15:48)
--- NOTE | 2024-01-04 16:48 | CON.INTV ---
Consultation
Consultation Request
Date/Time Consultation Requested: 01-04-24
Date/Time Consultation Performed: 01-04-24
Requesting Provider: Hospitalist dyan
Performing Provider: Dr Alvarez
Reason for Consultation: hypotension
Medical History
-
Chief Complaint: bradycardia
History of Present Illness:
Mr Blaine Mccormick is a 73/M adm 01-02 with acute on chronic hypotension (chronic SBP 100s) on morning of adm along dizziness, 30 lbs wt loss in last 2 wks, recent tick bite.
Reported chronic abd pain currently on GI work up at [facility], pending endoscopy and abd CT, working diagnosis stomach cancer.
At ER, BP 93/61, HR 71, then down to BP 81/55 and HR 60, started on IVFs, added empiric ceftriaxone on 01-03. Bradycardia worsened, noted h/o CAD s/p stenting and ICM with LVEF 45-50%, AFib not on AC due to h/o bleeding and affordability issues.
Transferred to ICU after cards evaluation to initiate dopamine gtt
Reportedly tick bite in L buttock, unknown attachment time but likely few weeks until finally realized a tick was attached, denies erythema around tick attachment, only outside activities in his home yard
Past Medical History
Past Medical History: Cancer (bladder), CHF, GERD, HTN, NIDDM and Other (AFib. PUD. Anemia. Nephrolithiasis)
Past Surgical History: Other (gastric bypass)
Social History
Tobacco: Former Smoker
Alcohol: Occasional
Drug: None
Personal:
Living: With Family
Family History
Family History: Reviewed & Not Pertinent
Allergies / Home Medications
Allergies
Allergy/AdvReac Type Severity Reaction Status Date / Time
No Known Allergies Allergy Unverified 01/03/24 12:28
Home Medications
�Medication �Instructions �Recorded �Confirmed �Last Taken �Type
ascorbic acid (vitamin C) 500 mg 500 mg PO DAILY Supplement 07/07/23 01/03/24 01/01/24 History
tablet (Vitamin C)
atorvastatin 40 mg tablet 40 mg PO HS High Cholesterol 07/07/23 01/03/24 01/01/24 History
brimonidine 0.2 % eye drops 1 drp BOTH EYES HS Eye Condition 07/07/23 01/03/24 1 Week Ago History
~12/27/23
carvedilol 3.125 mg tablet 3.125 mg PO BID Blood Pressure 07/07/23 01/03/24 01/01/24 History
cyanocobalamin (vitamin B-12) 100 100 mcg PO DAILY Supplement 07/07/23 01/03/24 01/01/24 History
mcg tablet
mirtazapine 15 mg tablet 15 mg PO HS Mental Health/Anxiety 07/07/23 01/03/24 01/01/24 History
potassium chloride 10 mEq 10 meq PO BID Electrolyte Repletion 07/07/23 01/03/24 01/01/24 History
tablet,extended release (Klor-Con)
timolol maleate 0.5 % eye drops 1 drp BOTH EYES HS Eye Condition 07/07/23 01/03/24 1 Week Ago History
~12/27/23
vitamin B complex 1 tab PO DAILY Supplement 07/07/23 01/03/24 01/01/24 History
furosemide 40 mg tablet (Lasix) 40 mg PO DAILY #30 tabs 07/13/23 01/03/24 01/01/24 Rx
lisinopril 2.5 mg tablet 2.5 mg PO DAILY #30 tabs 07/13/23 01/03/24 01/01/24 Rx
pantoprazole 40 mg tablet,delayed 40 mg PO BID 30 days #60 tabs 07/13/23 01/03/24 01/01/24 Rx
release
sucralfate 1 gram tablet 1 g PO ACHS #90 tabs 07/13/23 01/03/24 01/01/24 Rx
aspirin 81 mg tablet,delayed 81 mg PO DAILY 01/03/24 01/03/24 01/01/24 History
release
dorzolamide 2 % eye drops 1 drp BOTH EYES HS 01/03/24 01/03/24 1 Week Ago History
~12/27/23
Review of Systems
-
History Source: Patient
All other systems: Negative unless noted
Constitutional: Weight Loss (30 lbs in 2 wks) and Fatigue
Abdomen/GI: Abdominal Pain (chronic), Nausea and Vomiting
Neuro: Dizzy and Weakness
Vitals / Labs / Diagnostic Testing
Vital Signs
Temp Pulse Resp BP Pulse Ox
99 F 70 19 86/51 98
01/04/24 15:53 01/04/24 15:40 01/04/24 15:40 01/04/24 15:40 01/04/24 15:00
Lab Data
01/04/24 04:15
01/04/24 03:31
Microbiology
01/03/24 13:58 Blood/Venous Blood Culture - Preliminary
No Growth in 24 hours- Final report to follow
01/03/24 13:58 Blood/Venous Blood Culture - Preliminary
No Growth in 24 hours- Final report to follow
01/03/24 17:22 Urine Urine Culture - Final
No Significant Growth
Diagnostic Testing:
Physical Exam
-
HEENT: Normocephalic, Moist Mucous Membranes, Thrush (n) and Other (full dentures)
Cardiovascular: Irregular Rhythm (bradycardic), Murmur (n), Rub, Peripheral Edema (n) and JVD (n)
Respiratory: Clear, Non-Labored Respirations and Other (old L thoracotomy scar)
GI: Soft, Non Distended, Non Tender and Other (old laparoscopy scars)
Neurology: AO x 3 and No Motor Deficits
Skin: Warm
General: Respiratory Distress (n)
Assessment
-
Assessment:
Mr Blaine Mccormick is a 73/M adm 01-02 with acute on chronic hypotension (chronic SBP 100s) on morning of adm along dizziness, 30 lbs wt loss in last 2 wks, recent tick bite. Reported chronic abd pain currently on GI work up at [facility], pending endoscopy
and abd CT, working diagnosis stomach cancer. At ER, BP 93/61, HR 71, then down to BP 81/55 and HR 60, started on IVFs, added empiric ceftriaxone on 01-03. Bradycardia worsened, noted h/o CAD s/p stenting and ICM with LVEF 45-50%, AFib not on AC due
to h/o bleeding and affordability issues. Transferred to ICU after cards evaluation to initiate dopamine gtt
Impression:
Bradycardia
Ac/chronic HF
Mild lactic acidosis
Normal PCT
Normal random cortisol
Microhematuria, bacteriuria
Suspected UTI/prostatitis
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
AFib
CAD s/p stents, ICM, LVEF 30-35% (TTE 01-03 at . LVEF was 45-50% in Jun 2023)
HTN
GERD
PUD
Gastric bypass 6 y ago: postprandial vomit since then but recently worsened. See GI in [facility], pending UGED to rule out gastric cancer
HLD
Cholelithiasis
L blebectomy for pneumothorax 2-3 y ago in [place] (thoracotomy)
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
BPH, obstructive uropathy
Nephrolithiasis
Former smoker
Plan:
Transferred to ICU for management of worsening bradycardia, hypotension and suspected sepsis
Resp mota stable on RA, POx 97%, conversant
Keep asp precs
IS
Bradycardia and acute on chronic hypotension
Ac/chronic HF
Suspected sepsis, unknown origin, likely UTI
UCx pending
Tom placed by urology 01-03: turbid urine with apparent sediment
Noted h/o BPH with difficulty voiding and h/o nephrolithiasis
Blood cxs NTD
Started on empiric ceftriaxone 01-03
CT abd/p pending (CT Jun 2023 with small bilateral nonobstructive renal calculi and cholelithiasiss)
Started dopamine for bradycardia, hypotension
Requiring low dose with low normal BP (baseline) and improved bradycardia
Reportedly tick bite in L buttock, unknown attachment time but likely few weeks until finally realized a tick was attached, denies erythema around tick attachment, only outside activities in his home yard
Lyme screen pending
Wt loss work up in progress at [facility]
Pending scheduling UGED at [facility]: reportedly to rule out gastric cancer
Chronic AFib, not on AC due to h/o bleeding
Pending Watchman procedure at [facility]
Continue PPI
Sc hep
D/w Mr and Mrs Mccormick and their daughter at bedside
Critical care time: 35 min
--- NOTE | 2024-01-04 17:06 | CM ---
Patient with Dx Acute on chronic hypotension, Fatigue, weakness lightheadedness nausea, Vomiting and weight loss. Patient transferred from IMU to ICU today. IVF bolus. Dopamine gtt. PT & OT Evals on hold.
Met with patient and while patient was in IMU.
The patient resides with his in a one story house with 3 DEJA.
He has been independent in ADLs and ambulation.
He is normally active, works and drives however has been at home, on medical leave from work, for the past few weeks due to heart failure and Afib.
He has no DME.
Prior VN when living in [facility]
No prior SNF
PCP - [facility]
Pharmacy - [address], [place]
CM continuing to follow for d/c needs.
Plan TBD.
--- NOTE | 2024-01-04 17:28 | W.PN.UPDATE ---
Update Note
Progress Note Update
Patient had continued hypotension. Dopamine drip initiated and patient transferred to ICU. Midodrine held in this setting.
[2024-01-04] MEDS: OMNIPAQUE 50 ML PO (18:25)
--- NOTE | 2024-01-04 18:30 | PTCARENOTE ---
Transfer:
16:45 patient transfer from IMU Room 3348 to ICU level of care Room 3357. patient Received Dopamin at 2mcg. SBP 96; At 16:45 Dopamine increased to 4mcg per protocol. BP checked in 15 mints of titration SBP 108. Afib 67. No edema. Tom draining
gera cloudy urine Urinal output 400' patient NPO for Abdominal CT with contrast. 1st cup given at 18:45 2nd cup to be given at 19:45
--- NOTE | 2024-01-04 20:00 | PTCARENOTE ---
Assumed care of patient. Patient AOx3, laying in bed comfortably. Patient assessed, see worklist, VSS. Patient drinking oral contrast in preparation for CT scan. Patient offers no complaints minus pain at catheter site and lower back pain which is
chronic. Dopamine gtt infusing at 4 mcg, BP and HR stable.
[2024-01-04] MEDS: CARAFATE PO (20:07)
[2024-01-04 20:33] LABS: Troponin I < 0.012 ng/ml
[2024-01-04] MEDS: LIPITOR 40 MG PO (21:42)
[2024-01-04] MEDS: REMERON 15 MG PO (21:47)
[2024-01-04] MEDS: TRUSOPT 2% OPHTHALMIC SOLUTION BOTH EYES (21:47)
[2024-01-04] MEDS: ALPHAGAN 0.2% EYE DROPS BOTH EYES (21:47)
[2024-01-05] VITALS (50 sets, daily range): BP systolic 79–124; BP diastolic 46–86; PULSE 63–73; O2SAT 95
[2024-01-05 03:45] LABS: Hematocrit 38.1 % (39.0-52.0); Hemoglobin 12.4 g/dL (13.0-18.0); Mean Corp Hgb Conc. 32.5 g/dL (33.0-37.0); Mean Corpuscular Hgb 26.1 pg (27.0-31.0); Mean Corpuscular Volume 80.2 fL (80.0-94.0); Mean Platelet Volume 10.3 fL (7.4-10.4); Platelet Count 165 10^3/uL (130-400); Red Blood Cell Count 4.75 10^6/uL (4.70-6.10); White Blood Cell Count 6.8 10^3/uL (4.8-10.8)
[2024-01-05 04:06] LABS: Lactic Acid 0.9 mmol/L (0.7-2.0)
[2024-01-05 04:07] LABS: Troponin I < 0.012 ng/ml
[2024-01-05 04:08] LABS: Blood Urea Nitrogen 32 mg/dl (9-20); Calcium 8.9 mg/dl (8.4-10.2); Carbon Dioxide 26 mmol/L (22-30); Chloride 102 mmol/L (98-107); Estimated Creatinine Clearance 53 ml/min; Glucose 90 mg/dl (70-99); Magnesium 2.4 mg/dl (1.6-2.3); Potassium 4.8 mmol/L (3.5-5.1); Sodium 135 mmol/L (135-145); eGFR > 60.00
--- NOTE | 2024-01-05 04:15 | PTCARENOTE ---
No changes in assessment. Patients VSS. Patient remains on dopamine gtt at 4 mcg. BP stable. Call whitehead within reach.
--- NOTE | 2024-01-05 07:45 | PTCARENOTE ---
Received pt laying in bed. He is ill appearing and cachectic. Rib cage protruding with sunken abdomen. He easily awakens. SBP 79, Dopamine titrated to 5mcg/kg/min for SBP>90. Good peripheral pulses, no edema. Lungs CTA and dim in the bases. +BSX4.
Poor appetite. Tom catheter secured and draining gera urine. He is able to reposition himself in the bed. He was informed of the plan of care. He verbalized his understanding. Safe environment maintained. Will continue to monitor.
--- NOTE | 2024-01-05 08:10 | W.PN.INTV ---
Today's Communication / Plan
Recommendations
Doxy po
Dopa gtt
Assessment
-
Assessment:
Mr Blaine Mccormick is a 73/M adm 01-02 with acute on chronic hypotension (chronic SBP 100s) on morning of adm along dizziness, 30 lbs wt loss in last 2 wks, recent tick bite. Reported chronic abd pain currently on GI work up at [facility], pending endoscopy
and abd CT, working diagnosis stomach cancer. At ER, BP 93/61, HR 71, then down to BP 81/55 and HR 60, started on IVFs, added empiric ceftriaxone on 01-03. Bradycardia worsened, noted h/o CAD s/p stenting and ICM with LVEF 45-50%, AFib not on AC due
to h/o bleeding and affordability issues. Transferred to ICU after cards evaluation to initiate dopamine gtt
Impression:
Bradycardia
Ac/chronic HF
Mild lactic acidosis, resolved
Normal PCT
Normal random cortisol
Microhematuria, bacteriuria
Suspected UTI/prostatitis
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
AFib
CAD s/p stents, ICM, LVEF 30-35% (TTE 01-03 at . LVEF was 45-50% in Jun 2023)
HTN
GERD
PUD
Gastric bypass 6 y ago: postprandial vomit since then but recently worsened. See GI in [facility], pending UGED to rule out gastric cancer
HLD
Cholelithiasis
L blebectomy for pneumothorax 2-3 y ago in [place] (thoracotomy)
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
BPH, obstructive uropathy
Nephrolithiasis
Former smoker
Plan:
Transferred to ICU for management of worsening bradycardia, hypotension and suspected sepsis
Resp mota stable on RA, POx 97%, conversant
Keep asp precs
IS
Bradycardia and acute on chronic hypotension
Ac/chronic HF
TTE 01-03: LVEF 30-35%
Suspected sepsis, unknown origin, likely UTI s regional abnormalities, mild AR, enlarged RV size with normal systolic function
UCx 01-02 negative, 01-03 negative
Tom placed by urology 01-03: turbid urine with apparent sediment
Noted h/o BPH with difficulty voiding and h/o nephrolithiasis
D/w Dr Sinha 01-04, no actionable CT abd/p findings
CT abd/p 01-03 c/w CT Jun 2023 with small bilateral nonobstructive renal calculi and cholelithiasis. As noted below
Blood cxs NTD
Started on empiric ceftriaxone 01-03
Reportedly tick bite in [place], unknown attachment time but likely few weeks until finally realized a tick was attached, denies erythema around tick attachment, only outside activities in his home yard. Denies erythema migrans
Lyme screen negative, expected within 2-4 wks of exposure, no suspicion for cardiac involvement
Seen by ID, ceftriaxone d/c and started on po doxycycline to complete 10 d course
RUE PICC placed 01-04, no pulm infiltrate
Started dopamine for bradycardia, hypotension. Known h/o chronic hypotension with SBP in 100s
Requiring low dose dopamine with low normal BP (baseline) and improved bradycardia
Wean down/off dopamine as tolerated amador is no signs of peripheral perfusion or end organ damage
Agree with resumption of midodrine
Advised to increase oral intake of food and fluids
Wt loss work up in progress at [facility]
Pending scheduling UGED at [facility]: reportedly to rule out gastric cancer
Chronic AFib, not on AC due to h/o bleeding
Pending Watchman procedure at [facility]
Continue PPI
Sc hep
D/w Mr and Mrs Mccormick and their daughter at bedside
Can transfer back to IMU/telemetry once dopamine off, will sign off then
Critical care time: [address] abd/p s/c 01-03:
IMPRESSION:
1. Mild distention of the left intrarenal calyces and left renal pelvis which has increased since 07/12/2023. No CT evidence for obstructing left ureteral calculus. Large amount of bilateral perinephric edema and small amount of nonloculated
bilateral perinephric fluid which could be secondary to either chronic renal disease or acute pyelonephritis which is not definitively changed.
2. Severe calcific atherosclerotic plaque in the abdominal aorta, iliac, and femoral arteries. Fusiform infrarenal abdominal aortic aneurysm (2.7 cm AP dimension). Fusiform left common iliac artery aneurysm (1.9 cm short axis diameter).
3. Moderate amount of fecal material and distention of the colon suggesting constipation. Moderate diverticulosis in the descending and sigmoid colon.
4. Cholelithiasis.
5. 3.8 cm left adrenal adenoma.
6. Previous gastric bypass surgery.
7. Moderate diffuse urinary bladder wall thickening (possibly secondary to underdistention given the presence of a Tom catheter in the bladder lumen).
Subjective Dataa
Subjective Data
Date of Service:
Date of Service: January 05, 2024
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
Subjective:
No major events reported overnight
Continues on dopamine drip
Remains respiratory stable on room air
Review of Systems
General: Fever (n), Sweats (n) and Satisfactory Appetite (n)
Cardiopulmonary: Dyspnea (n), Cough (n), Sputum Production (n) and Chest Pain (n)
GI: Abdominal Pain, Nausea (n) and Vomiting (n)
Neuro: Weakness
Objective Data
Data Reviewed
Vital Signs / I&O / Oxygen:
Vital Signs
Temp Pulse Resp BP Pulse Ox
97.7 F 85 16 104/80 98
01/05/24 07:19 01/05/24 05:00 01/05/24 05:00 01/05/24 05:00 01/04/24 20:00
Intake and Output
01/04/24 01/05/24 01/06/24
06:59 06:59 06:59
Intake Total 1100 / 1100
Output Total 350 / 350 2100 / 2100
Balance -350 / -350 -1000 / -1000
SaO2 98
Nasal Cannula flow liters per 1
minute
Physical Exam
General: Respiratory Distress (n)
HEENT: Normocephalic and Moist Mucous Membranes
Cardiovascular: Regular Rhythm, Murmur and Peripheral Edema (n)
Respiratory: Clear, Non-Labored Respirations and Stridor (n)
GI: Soft, Non Distended and Non Tender
Neurology: Awake, Oriented and No Motor Deficits
Skin: Warm
Labs/Micro/Reports
Lab Data
01/05/24 03:25
01/05/24 03:25
Microbiology
01/03/24 13:58 Blood/Venous Blood Culture - Preliminary
No Growth in 24 hours- Final report to follow
01/03/24 13:58 Blood/Venous Blood Culture - Preliminary
No Growth in 24 hours- Final report to follow
01/03/24 17:22 Urine Urine Culture - Final
No Significant Growth
--- NOTE | 2024-01-05 08:49 | W.PN.HOSP.TC ---
Today's Communication/Plan
-
see A/P
Assessment / Plan
Assessment / Plan
HPI: 73-year-old male past medical history notable of A-fib, GERD, CHF; p/w low blood pressure. Patient states that he has chronic low blood pressure (normally systolic in the 100s), however in the morning when he took his blood pressure, he noticed
that his blood pressure was 70/62 and he felt dizzy and lightheaded. He follows at [facility]. He drove his down for her appointment, but is now too weak to drive back.
He endorsed to significant weight loss (30 pounds) in the last 2 weeks, and chronic L sided abdomen pain, associated with significant loss of appetite, nausea and occasional vomiting.
He has been unable to keep down any p.o. meds due to nausea and vomiting.
He is seeing oncologist at [facility], and is currently being worked up for possible stomach cancer; pending endoscopy and abdominal CT.
He denies to fever/chills, chest pain, shortness of breath.
He mentioned that he recently (2 weeks ago) got a tick bite on his left thigh area.
CT AP:
1. Mild distention of the left intrarenal calyces and left renal pelvis which has increased since 07/12/2023. No CT evidence for obstructing left ureteral calculus. Large amount of bilateral perinephric edema and small amount of nonloculated
bilateral perinephric fluid which could be secondary to either chronic renal disease or acute pyelonephritis which is not definitively changed.
2. Severe calcific atherosclerotic plaque in the abdominal aorta, iliac, and femoral arteries. Fusiform infrarenal abdominal aortic aneurysm (2.7 cm AP dimension). Fusiform left common iliac artery aneurysm (1.9 cm short axis diameter).
3. Moderate amount of fecal material and distention of the colon suggesting constipation. Moderate diverticulosis in the descending and sigmoid colon.
4. Cholelithiasis.
5. 3.8 cm left adrenal adenoma.
6. Previous gastric bypass surgery.
7. Moderate diffuse urinary bladder wall thickening (possibly secondary to underdistention given the presence of a Tom catheter in the bladder lumen).
A/P:
# Acute on chronic hypotension likely due to dehydration and now bradycardia
# Shock likely cardiogenic
CRP neg, TSH WNL at 1.44, random cortisol level WNL at 24
Procal neg, COVID neg, Lyme serology negative (patient endorsed recent tick bite).
Since CRP neg, infectious cause less likely
Blood Cx neg
There was concern of prostatitis per Uro with retention and cloudy urine
first urine Cx no significant growth, a second urine Cx was sent - follow up
cont empiric ceftriaxone for now
ID CS
s/p IVF without significant improvement in BP
Pt was started with midodrine which was stopped with initiation of Dopamine drip for bradycardia and cardiogenic shock
Echo noted severely reduced left ventricular systolic function. EF 30-35%.
Hold TOOL DIE MAKER Lasix, Coreg, lisinopril
Pasta Maker on board
Eventual PT OT eval when able for weakness
# Acute urinary retention
CT AP without obstructing left ureteral calculus. Large amount of bilateral perinephric edema and small amount of nonloculated bilateral perinephric fluid which could be secondary to either chronic renal disease or acute pyelonephritis which is not
definitively changed.
First urine Cx no significant growth, a second urine Cx was sent - follow up
Cont empiric ceftriaxone for now
Tom placed by Uro
# decreased appetite, abdominal pain, nausea and possibly vomiting ; likely due to underlying cancer with constipation noted on CT AP
# Severe protein caloric malnutrition
He follows oncology at [facility]
He is awaiting work up for possible stomach cancer with an endoscopy and abdominal CT
Of note, patient had an upper endoscopy 07/10 at which noted [place]-colored mucosa suspicious for short-segment Noble's esophagus. Normal stomach and anastomosis. Non-bleeding jejunal ulcer with no stigmata of bleeding.
Continue prior to admission mirtazapine
Cont regular diet
Start bowel regimen Dulcolax x1, Senokot-S, Miralax
# DEVIN from dehydration/poor p.o. intake, resolved
serum creatinine 1.7 -> 1.1, baseline from 06/2023 at 1.0
# Bradycardia with likely chronic A fib
EKG with A fib but slow HR
Echo noted severely reduced left ventricular systolic function. EF 30-35%.
Dopamine drip as stated above
Card on board
Pt informed that he prefers cardiac work up at [facility]
# Mild Hyponatremia, resolved
Monitor
# Mild hyperkalemia , resolved
# Hypothermia likely due to poor body reserve with severe protein caloric malnutrition on admission , resolved
rebecca robert PRN
# Incidental finding of 3.8 cm left adrenal adenoma.
Informed pt and family that he can follow up with endo outpt for this
# Severe calcific atherosclerotic plaque in the abdominal aorta, iliac, and femoral arteries. Fusiform infrarenal abdominal aortic aneurysm (2.7 cm AP dimension). Fusiform left common iliac artery aneurysm (1.9 cm short axis diameter).
Informed pt and family that he can follow up with vascular surgeon outpt for this
Chronic medical conditions
# History of peptic ulcer disease/GERD
# History of gastric bypass
Continue prior to admission Protonix twice daily and Carafate
# Atrial fibrillation unspecified type
Hold TOOL DIE MAKER coreg
He no longer is on Eliquis due to cost (his outpatient hemodialysis rn is aware of this, and is okay with holding off Eliquis)
# Coronary disease status post stents x2
# Chronic heart failure unspecified type
# Essential hypertension
Hold TOOL DIE MAKER coreg, lasix, lisinopril due to hypotension
# Bladder cancer
# Hypercholesterolemia
Continue statin
# History of kidney stones
# Anxiety/depression
Continue mirtazapine
# History of gastric bypass surgery 6 years ago
Full code
DVT prophylaxis� HSQ
DW RN
DW and daughter at bedside
total time spent 51 min
Anticipated Discharge: > 48 hours
Subjective/Interval History
-
Date of Service: January 05, 2024
Objective Data
-
Labs:
Laboratory Results
01/05/24
03:25
WBC 6.8
Hgb 12.4 L
Hct 38.1 L
Plt Count 165
Sodium 135
Potassium 4.8
Chloride 102
Carbon Dioxide 26
BUN 32 H
Creatinine 1.1
Glucose 90
Calcium 8.9
Vital Signs:
Vital Signs
Temp Pulse Resp BP Pulse Ox
36.5 C 85 16 104/80 98
01/05/24 07:19 01/05/24 05:00 01/05/24 05:00 01/05/24 05:00 01/04/24 20:00
I&O
01/04/24 01/05/24 01/06/24
06:59 06:59 06:59
Intake Total 1100 / 1100
Output Total 350 / 350 2100 / 2100
Balance -350 / -350 -1000 / -1000
Review of Systems
-
All other systems: Reviewed and negative
Physical Exam
-
General: Well Developed, No Apparent Distress, Comfortable, Conversant, Appears Chronically Ill and Cachectic
HEENT: Normocephalic and Atraumatic
Respiratory: Clear to Auscultation and Non Labored Respirations; Negative Wheezes, Rales, Rhonchi or Accessory Resp Muscle Use
Cardiac: S1/S2 and Irregular Rhythm
GI: Soft, Nontender, Nondistended and Normal Bowel Sounds
Musculoskeletal: No Clubbing, No Cyanosis and No Edema
Skin: Warm and Dry
Neuro: Awake, Alert and Oriented
Psych: Calm and Intact Judgement/Insight
Data Reviewed
-
CT Scan: Report Reviewed by me
Labs: Labs Reviewed by me
[2024-01-05] MEDS: CARAFATE 1 GRAM PO ×4 (09:12→22:03)
[2024-01-05] MEDS: HEPARIN 5000 UNITS SC ×2 (09:14→20:13)
[2024-01-05] MEDS: DOPamine 400 MG 250 IV (09:16)
--- NOTE | 2024-01-05 09:45 | CON.ID ---
Consultation
-
Date/Time Consultation Requested: January 05, [id number]
Date/Time Consultation Performed: January 05, 2024 0945
Requesting Provider: Dr. Lucy Linton
Performing Provider: Dr. Florinda Graham
Reason for Consultation: Possible prostatitis
Chief Complaint / Past History
Chief Complaint
Weight loss, low bp, weakness
History of Present Illness
History obtained from the patient as well as from his at bedside. He is a 73-year-old male with heart failure, CAD, A-fib for planned Watchman procedure, history of gastric bypass, chronic nausea and occasional vomiting who presented to the ER
on January 02 due to several day history of feeling weak with low blood pressure in the 70s, worsening poor appetite, lower left back pain, and 30 pound weight loss over the past 2 weeks. He lives in [place] and follows with [facility]
system. He drove his to [place] for an appointment on 01/02, but unable to drive back due to feeling poorly. In the hospital patient had episode of bradycardia with slow ventricular rate, which resolved. Echocardiogram shows reduced EF 30
to 35%, worse than previous. He is hypotensive and will be starting dopamine. Patient also in urinary retention. He reports he was not able to urinate while at home. Had some dysuria. No urgency. No prostate pain. He does have history of BPH
and sometimes has weak stream. Bladder scan was 380 cc with difficulty with straight catheterization. CT of the abdomen pelvis showed mild left dilated renal system as compared to previous without obstruction, bilateral perinephric fluid stable as
compared to June 2023 CAT scan. Admission urine culture was negative. Urology placed a coud� catheter yesterday. Repeat urine culture obtained yesterday and started ceftriaxone. He reports noting a small dot on his left hip about 6 weeks ago.
Last week his noted an engorged tick over that same area. She pulled it out. He does not know how long the engorged tick was embedded in his hip. He started feeling poorly afterwards. No headache. No joint pains. Positive weakness and
fatigue. No diarrhea. No ill contacts.
Past History
Additional Past Medical History:
Atrial fibrillation
CAD s/p stents
Congestive heart failure
Hypertension
Hypercholesterolemia
Peptic ulcer disease
Colonic polyps (pre-cancerous)
History of bladder cancer
Anxiety/depression
Nephrolithiasis
GERD
Bladder ca s/p resection
Gastric bypass (2018)
PTX due to blebs s/p lung resection
Allergy History:
No Known Allergies Allergy (Unverified 01/03/24 12:28)
Medications Reviewed: Yes
Current Antibiotics:
ceftriaxone
Social History
Tobacco: Former Smoker
Alcohol: Occasional
Drug: None
Personal:
Family History
Family History: Not Pertinent
Review of Systems
Review of Systems
General: Change in Appetite; Negative Fever
HEENT: Negative Sinus Problems, Headache or Pharyngitis
Respiratory: Negative Dyspnea or Cough
Gasteroenterology: Nausea (chronic) and Vomiting (chronic)
Endocrine: Weakness
Musculoskeletal: Negative Arthralgias
Skin / Hair / Nails: Negative Rash
Neurological: Dizziness; Negative Headache
All systems: All other systems were reviewed and were negative
Vital Signs
Temp Pulse Resp BP Pulse Ox
97.7 F 85 16 104/80 98
01/05/24 07:19 01/05/24 05:00 01/05/24 05:00 01/05/24 05:00 01/04/24 20:00
Physical Exam
Physical Exam
Constitutional: Cachetic
Head: Other (No frontal or maxillary sinus tenderness.)
Eyes: No Conjunctival Hemorrhage and Sclera Anicteric
Cardiovascular: Regular Rate and S1/S2
Pulmonary: Clear
Gastrointestinal: Soft, Non Tender, Non Distended and Normal Bowel Sounds
Genito-Urinary: Tom and Clear Urine
Extremities: Negative Edema
Skin: Negative Rash
Neurological: AO x 3
Lab / Diagnostic Study Results
01/05/24 03:25
01/05/24 03:25
Abs Immat Gran (auto) 0.0 10^3/uL (0-0.05) 01/03/24 12:37
Absolute Neuts (auto) 6.3 10^3/uL (1.4-6.5) 01/03/24 12:37
Absolute Lymphs (auto) 1.3 10^3/uL (1.2-3.4) 01/03/24 12:37
Absolute Monos (auto) 0.5 10^3/uL (0.1-0.6) 01/03/24 12:37
Absolute Basos (auto) 0.1 10^3/uL (0-0.2) 01/03/24 12:37
Immature Gran % 0.5 % (0-0.5) 01/03/24 12:37
Neutrophils % 76.7 % (42.2-75.2) H 01/03/24 12:37
Lymphocytes % 15.7 % (20.5-51.1) L 01/03/24 12:37
Monocytes % 5.6 % (1.7-9.3) 01/03/24 12:37
Eosinophils % 0.9 % (0-6) 01/03/24 12:37
Basophils % 0.6 % (0-2) 01/03/24 12:37
Lactic Acid 0.9 mmol/L (0.7-2.0) 01/05/24 03:25
C-Reactive Protein < 5.00 mg/L (0.0-10.00) 01/03/24 12:37
Procalcitonin < 0.05 ng/ml (0.0-0.25) 01/04/24 11:52
Ur Squamous Epith Cells 6-10 /LPF (Few) 01/03/24 17:22
Microbiology Results
Micro:
01/03/24 13:58 Blood Culture - Preliminary
Blood/Venous No Growth in 24 hours- Final report to follow
01/03/24 13:58 Blood Culture - Preliminary
Blood/Venous No Growth in 24 hours- Final report to follow
01/03/24 17:22 Urine Culture - Final
Urine No Significant Growth
01/04/24 06:22 Urine Culture - Pending
Urine
01/04/24 CT a/p: Mild distention of the left intrarenal calyces and left renal pelvis which has increased since 07/12/2023. No CT evidence for obstructing left ureteral calculus. Large amount of bilateral perinephric edema and small amount of
nonloculated bilateral perinephric fluid which could be secondary to either chronic renal disease or acute pyelonephritis which is not definitively changed. Severe calcific atherosclerotic plaque in the abdominal aorta, iliac, and femoral arteries.
Fusiform infrarenal abdominal aortic aneurysm (2.7 cm AP dimension). Fusiform left common iliac artery aneurysm (1.9 cm short axis diameter). Moderate diffuse urinary bladder wall thickening (possibly secondary to underdistention given the presence
of a Tom catheter in the bladder lumen).
Assessment / Plan
# Tick bite
- Pulled an engorged tick from hip 1 week ago.
Unknown how long engorged tick embedded in hip.
Lyme screen negative which is expected within 2 to 4 weeks of exposure.
- Treat with doxycycline 100mg po bid x 10days.
- Of note, his hypotension and bradycardia (wo AV block) are NOT associated with tick-borne illness. Onset too early from time of presumed Borrelia exposure.
# Urinary retention/BPH
- Coude catheter placed 01/04/24
- Urine cx negative (before abx) -> not consistent with UTI/prostatitis.
- DC ceftriaxone.
# Heart failure with worsening EF
# Hypotension- on dopamine
- No infectious etiology identified. Bcx neg, Ucx neg, CXR neg.
# Unintentional 30# weight loss over 2 weeks
# h/o Gastric bypass with chronic nausea, occasional vomiting
%Additional medical history
Atrial fibrillation
CAD s/p stents
Congestive heart failure
Hypertension
Hypercholesterolemia
Peptic ulcer disease
Colonic polyps (pre-cancerous)
History of bladder cancer
Anxiety/depression
Nephrolithiasis
GERD
Bladder ca s/p resection
Gastric bypass (2018)
PTX due to blebs s/p lung resection
[2024-01-05] MEDS: PROSCAR 5 MG PO (10:01)
[2024-01-05] MEDS: VITAMIN B-12 100 MCG PO (10:01)
[2024-01-05] MEDS: FLOMAX 0.400000000000000022 MG PO (10:01)
[2024-01-05] MEDS: ASPIR LOW (ENTERIC COATED) 81 MG PO (10:01)
[2024-01-05] MEDS: PROTONIX 40 MG PO ×2 (10:01→20:13)
[2024-01-05] MEDS: DULCOLAX 10 MG PO (10:10)
[2024-01-05] MEDS: MIRALAX 17 GRAMS PO (10:10)
[2024-01-05] MEDS: SENOKOT-S 1 TABLET PO ×2 (10:10→20:13)
[2024-01-05] MEDS: ZOFRAN 4 MG IV (10:25)
[2024-01-05] MEDS: TYLENOL 650 MG PO (10:30)
--- NOTE | 2024-01-05 10:41 | W.PN.URO.CBU ---
Today's Communication / Plan
-
Continue abx pending culture
Maintain brown until nearing discharge, then can attempt trial of void
Outpatient follow up for bladder cancer surveillance
Assessment / Plan
-
73M admitted for acute on chronic hypotension of unclear etiology, chronic abdominal pain, DEVIN, urinary retention
Urology consulted for difficult brown
UTI
- Some symptoms of UTI/prostatitis a few days prior to admission with cloudy urine and development of retention
- Continue ceftriaxone pending culture
- No evidence of ureteral obstruction on CT 01/04
Urinary retention
- 18Fr coude catheter placed with 500cc clear yellow urine
- Maintain brown until nearing discharge - remove in early AM for trial of void with bladder scan post void
- Can start tamsulosin 0.4mg daily and continue through discharge if BP supports it. Would hold this until any hypotension concerns are resolved
Bladder cancer
- Unclear history from patient and family - he had something removed in [place] a few years ago but was told after he did not need any surveillance. This does not sound like bladder cancer
- Outpatient follow up to review records and schedule eventual cystoscopy
Diagnosis
-
Date of Service: January 05, 2024
-
Patient Diagnosis:
Urinary Retention
UTI
Hx of Bladder cancer
Post Op Day:
Subjective
-
no events overnight
Objective
-
Vital Signs
Temp Pulse Resp BP Pulse Ox
97.7 F 85 16 104/80 98
01/05/24 07:19 01/05/24 05:00 01/05/24 05:00 01/05/24 05:00 01/04/24 20:00
Intake and Output
01/04/24 01/05/24 01/06/24
06:59 06:59 06:59
Intake Total 1100 / 1100
Output Total 350 / 350 2100 / 2099
Balance -350 / -350 -1000 / -1000
Intake:
Oral fluids 480 / 480
IV fluids (Total) 620 / 620
dopamine 120 / 120
Output:
Urine, Brown 1950 / 1949
Urine, Voided 350 / 350 150 / 150
Laboratory Results
01/05/24 03:25
01/05/24 03:25
Physical Exam
-
General - well developed, well nourished, no acute distress
Chest - clear
Abdomen - soft, non-tender
Brown in place, clear urine
Skin - warm & dry with no rash
Neuro - AOx3, no motor deficits
Extremities - no clubbing, no cyanosis, no edema
[2024-01-05] MEDS: VIBRAMYCIN 100 MG PO ×2 (12:38→20:13)
--- NOTE | 2024-01-05 13:06 | W.PN.CD ---
Today's Communication / Plan
-
Retry higher dose midodrine, see if dopamine can be weaned off
Continue to hold meds
Impression / Plan
-
Dizziness/hypotensive/bradycardic on arrival
- Holding Coreg, lisinopril
- Holding BB eye drops
- Presumably due to acute medical illness on top of his ischemic cardiomyopathy
- Try midodrine to see if dopa can be stopped
- His BP has been on the low side during admit here in 06/2023
CAD
Ischemic cardiomyopathy (Echo here 01/04/2024 LVEF 30-35% with mild AR)
- His coastal and estuary specialist in [place] is aware of a decline in EF and has offered cath
- Hope meds can be added back as medical illness improves
Permanent AFib, he stopped Eliquis (cost) and his coastal and estuary specialist in [facility] plans on Watchman
Suspected source of infection
Unintentional weight loss
- ? etiology, underlying malignancy or perhaps cardiac cachexia
Eye disease
- His eye drops are on hold, may need alternative therapy
Physical Exam
Vital Signs/Labs
Vital Signs
Temp Pulse Resp BP Pulse Ox
97.7 F 58 16 113/60 95
01/05/24 07:19 01/05/24 11:30 01/05/24 11:30 01/05/24 11:30 01/05/24 11:00
01/04/24 01/05/24 01/06/24
06:59 06:59 06:59
Actual Weight 63.8 kg
01/05/24 03:25
01/05/24 03:25
Magnesium 2.4 mg/dl (1.6-2.3) H 01/05/24 03:25
LAB Results
01/04/24 01/04/24 01/05/24
11:52 20:03 03:25
Troponin I < 0.012 < 0.012 < 0.012
Physical Exam
Constitutional: No acute distress
Cardiovascular: S1S2 is normal
Respiratory: Respiratory effort normal and Lungs clear to auscul.
GI: Soft and Distention absent
Neuro/Psych: AO x 3
Data Reviewed
-
Date of Service: January 05, 2024
--- NOTE | 2024-01-05 13:15 | CM ---
Addendum entered by Parker Mcrae 01/05/24 14:12:
Pt asked to fax his medical record to [employer] disability [employer] at [phone]. Claim number: [id number].
Pt's medical record faxed to [employer] per pt's request.
Original Note:
CM following re: discharge planning.
Discussed in Rounds, reviewed pt's chart, met with pt and pt's spouse at bedside.
Per Rounds meeting, pt is admitted for acute on chronic hypotension likely due to dehydration and now bradycardia, urology cardiology and ID following.
PT and OT evaluations noted: home PT/OT is recommended.
Pt reports he lives with spouse in a 2SH, has 4 supportive children. 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 Pt expressed his agreement to have home PT and he preferred
[facility]. A referral to [facility] made.
IMM reviewed, placed in chart, pt has a copy.
D/C plan: home with [facility] and family support. Spouse to transport at discharge.
CM will follow with discharge plan updates as hospitalization progresses
--- NOTE | 2024-01-05 15:01 | PTCARENOTE ---
He ambulated to the BR 1 assist due to telemetry cords and IV pole. He was steady. He did not have a BM but did pass a good amount of flatus.
--- NOTE | 2024-01-05 15:39 | PTCARENOTE ---
Right FA#20g protective catheter removed. New tubing placed on Dopamine bag and now is infusing via right DL PICC.
[2024-01-05] MEDS: ProAmatine 10 MG PO (17:19)
--- NOTE | 2024-01-05 20:00 | PTCARENOTE ---
Assumed care of patient at 1900, nursing assessment completed and as documented. Patient Ox3, on RA lung sounds decreased with shallow respirations, Afib on monitor rates 60-80, +PP. Patient cachectic in appearance with poor appetite, brown in place
draining gera urine, no recent BM but on bowel regimen. Patient on dopamine gtt infusing via R D/L PICC at [facility], see worklist for titration. PM medications given without difficulty, denies need for repositioning or hygiene at this time, answered
all questions related to POC, call [facility]head within reach, care ongoing.
[2024-01-05] MEDS: REMERON 15 MG PO (22:03)
[2024-01-05] MEDS: LIPITOR 40 MG PO (22:03)
[2024-01-05] MEDS: ALPHAGAN 0.2% EYE DROPS 1 DROP BOTH EYES (22:03)
[2024-01-05] MEDS: TRUSOPT 2% OPHTHALMIC SOLUTION 1 DROP BOTH EYES (22:04)
[2024-01-06] VITALS (44 sets, daily range): BP systolic 90–119; BP diastolic 56–85; PULSE 39; BMI 20.6
--- NOTE | 2024-01-06 | PTCARENOTE ---
No changes to physical assessment. Dopamine infusing at 4mcg via R D/L PICC, see worklist for titration. Patient with periods of heart rates into 40s, asymptomatic. Call [facility]head within reach, care ongoing.
[2024-01-06 03:52] LABS: Hematocrit 36.9 % (39.0-52.0); Hemoglobin 11.8 g/dL (13.0-18.0); Mean Corpuscular Hgb 25.9 pg (27.0-31.0); Mean Corpuscular Volume 81.1 fL (80.0-94.0); Mean Platelet Volume 10.2 fL (7.4-10.4); Platelet Count 155 10^3/uL (130-400); Red Blood Cell Count 4.55 10^6/uL (4.70-6.10); Red Cell Dist. Width 24.7 % (11.5-14.5); White Blood Cell Count 6.2 10^3/uL (4.8-10.8)
--- NOTE | 2024-01-06 04:00 | PTCARENOTE ---
No changes to physical assessment. Attempted to wean dopamine to 3mcg but HR into 30's, patient remained asymptomatic, dopamine titrated back to 4mcg, see worklist. Labs drawn and sent, hygiene care provided, call [facility]head within reach.
[2024-01-06 04:05] LABS: Blood Urea Nitrogen 26 mg/dl (9-20); Calcium 8.7 mg/dl (8.4-10.2); Carbon Dioxide 30 mmol/L (22-30); Chloride 105 mmol/L (98-107); Estimated Creatinine Clearance 53 ml/min; Glucose 95 mg/dl (70-99); Magnesium 2.2 mg/dl (1.6-2.3); Potassium 5.3 mmol/L (3.5-5.1); Sodium 134 mmol/L (135-145); eGFR > 60.00
[2024-01-06] MEDS: LOKELMA 10 GRAM PO (05:53)
--- NOTE | 2024-01-06 06:21 | W.PN.CD ---
Today's Communication / Plan
-
patient HR is 60 but till on Dopamine
would gibve morning Midodrine and then try and wean Dopamine later this morning - monitoring BP and HR int he process.
Continue tx of UTI as per primary team and urology
Impression / Plan
-
Dizziness/hypotensive/bradycardic on arrival
- Holding Coreg, lisinopril
- Holding BB eye drops
- Presumably due to acute medical illness on top of his ischemic cardiomyopathy
- Try midodrine to see if dopa can be stopped
- His BP has been on the low side during admit here in 06/2023
Bradycardia- afib with slow ventricular response.
- now off BB.
- HR 60 at resp but still on Dopamine. will try to wean off and monitor
CAD
Ischemic cardiomyopathy (Echo here 01/04/2024 LVEF 30-35% with mild AR)
- His smog technician in [place] is aware of a decline in EF and has offered cath
- Hope meds can be added back as medical illness improves
Permanent AFib, he stopped Eliquis (cost) and his smog technician in [facility] plans on Watchman
UTI - ecoli
- tx per hospitalists and urology
Unintentional weight loss
- ? etiology, underlying malignancy or perhaps cardiac cachexia
Eye disease
- His eye drops are on hold, may need alternative therapy
Physical Exam
Vital Signs/Labs
Vital Signs
Temp Pulse Resp BP Pulse Ox
98.1 F 59 16 101/74 99
01/06/24 03:22 01/06/24 06:00 01/06/24 06:00 01/06/24 06:00 01/06/24 06:00
01/04/24 01/05/24 01/06/24
06:59 06:59 06:59
Actual Weight 63.8 kg 63.2 kg
01/06/24 03:44
01/06/24 03:44
Magnesium 2.2 mg/dl (1.6-2.3) 01/06/24 03:44
LAB Results
01/04/24 01/04/24 01/05/24
11:52 20:03 03:25
Troponin I < 0.012 < 0.012 < 0.012
Physical Exam
Constitutional: No acute distress
Cardiovascular: Rhythm & rate is regular
Respiratory: Respiratory effort normal
GI: Soft
Neuro/Psych: Alert
Data Reviewed
-
Date of Service: January 06, 2024
Medical Decision Making: Reviewed Test Results
X-Ray/CT/US/MRI/NUC/PET: Report Reviewed by me
Labs: Labs Reviewed by me
--- NOTE | 2024-01-06 07:13 | W.PN.INTV ---
Today's Communication / Plan
Recommendations
Dopa
Atbs
Improve oral intake
Assessment
-
Assessment:
Mr Blaine Mccormick is a 73/M adm 01-02 with acute on chronic hypotension (chronic SBP 100s) on morning of adm along dizziness, 30 lbs wt loss in last 2 wks, recent tick bite. Reported chronic abd pain currently on GI work up at [facility], pending endoscopy
and abd CT, working diagnosis stomach cancer. At ER, BP 93/61, HR 71, then down to BP 81/55 and HR 60, started on IVFs, added empiric ceftriaxone on 01-03. Bradycardia worsened, noted h/o CAD s/p stenting and ICM with LVEF 45-50%, AFib not on AC due
to h/o bleeding and affordability issues. Transferred to ICU after cards evaluation to initiate dopamine gtt
Impression:
Bradycardia
Hypotension
Ac/chronic HF
Mild lactic acidosis, resolved
Normal PCT
Normal random cortisol
Microhematuria, bacteriuria
Suspected UTI/prostatitis
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
AFib
CAD s/p stents, ICM, LVEF 30-35% (TTE 01-03 at . LVEF was 45-50% in Jun 2023)
HTN
GERD
PUD
Gastric bypass 6 y ago: postprandial vomit since then but recently worsened. See GI in [facility], pending UGED to rule out gastric cancer
HLD
Cholelithiasis
L blebectomy for pneumothorax 2-3 y ago in [place] (thoracotomy)
Possible bladder cancer s/p resection 2 y BLASTING HELPER in [place]
BPH, obstructive uropathy
Nephrolithiasis
Former smoker
Plan:
Transferred to ICU for management of worsening bradycardia, hypotension and suspected sepsis
Resp mota stable on RA, POx 97%, conversant
Keep asp precs
IS
Bradycardia and acute on chronic hypotension
Ac/chronic HF
TTE 01-03: LVEF 30-35%, s regional abnormalities, mild AR, enlarged RV size with normal systolic function
Suspected sepsis, unknown origin, no evidence of UTI
UCx 01-02 negative, 01-03 negative
Tom placed by urology 01-03: turbid urine with apparent sediment
Noted h/o BPH with difficulty voiding and h/o nephrolithiasis
D/w Dr Sinha 01-04, no actionable CT abd/p findings
CT abd/p 01-03 c/w CT Jun 2023 with small bilateral nonobstructive renal calculi and cholelithiasis. As noted below
Blood cxs NTD
Started on empiric ceftriaxone 01-03
Reportedly tick bite in [place], unknown attachment time but likely few weeks until finally realized a tick was attached, denies erythema around tick attachment, only outside activities in his home yard. Denies erythema migrans
Lyme screen negative, expected within 2-4 wks of exposure, no suspicion for cardiac involvement
Seen by ID, ceftriaxone d/c and started on po doxycycline to complete 10 d course
RUE PICC placed 01-04, no pulm infiltrate
Started dopamine for bradycardia, hypotension. Known h/o chronic hypotension with SBP in 100s
Requiring low dose dopamine with low normal BP (baseline) and improved bradycardia
Wean down/off dopamine as tolerated amador is no signs of peripheral perfusion or end organ damage
Agree with resumption of midodrine: 10 mg tid
Advised to increase oral intake of food and fluids, reports poor appetite
Wt loss work up in progress at [facility]
Pending scheduling UGED at [facility]: reportedly to rule out gastric cancer
Chronic AFib, not on AC due to h/o bleeding
Pending Watchman procedure at [facility]
Continue PPI
Sc hep
D/w Mr and Mrs Mccormick and their daughter at bedside
Can transfer back to IMU/telemetry once dopamine off, will sign off then
Critical care time: [address] abd/p s/c 01-03:
IMPRESSION:
1. Mild distention of the left intrarenal calyces and left renal pelvis which has increased since 07/12/2023. No CT evidence for obstructing left ureteral calculus. Large amount of bilateral perinephric edema and small amount of nonloculated
bilateral perinephric fluid which could be secondary to either chronic renal disease or acute pyelonephritis which is not definitively changed.
2. Severe calcific atherosclerotic plaque in the abdominal aorta, iliac, and femoral arteries. Fusiform infrarenal abdominal aortic aneurysm (2.7 cm AP dimension). Fusiform left common iliac artery aneurysm (1.9 cm short axis diameter).
3. Moderate amount of fecal material and distention of the colon suggesting constipation. Moderate diverticulosis in the descending and sigmoid colon.
4. Cholelithiasis.
5. 3.8 cm left adrenal adenoma.
6. Previous gastric bypass surgery.
7. Moderate diffuse urinary bladder wall thickening (possibly secondary to underdistention given the presence of a Tom catheter in the bladder lumen).
Subjective Dataa
Subjective Data
Date of Service:
Date of Service: January 06, 2024
Chief Complaint: Liquified [employer] Technician Follow Up
Subjective:
No major events reported
Low dose dopamine weaning
Poor appetite, very limited oral intake
Review of Systems
General: Fever (n), Sweats (n), Chills (n) and Satisfactory Appetite (n)
Cardiopulmonary: Dyspnea, Cough (n) and Chest Pain
GI: Abdominal Pain (discomfort), Nausea (n) and Vomiting (n)
Neuro: Weakness
Objective Data
Data Reviewed
Vital Signs / I&O / Oxygen:
Vital Signs
Temp Pulse Resp BP Pulse Ox
98.1 F 59 16 101/74 99
01/06/24 03:22 01/06/24 06:00 01/06/24 06:00 01/06/24 06:00 01/06/24 06:00
Intake and Output
01/05/24 01/06/24 01/07/24
06:59 06:59 06:59
Intake Total 1100 / 1109.6 1910.4 / 1910.4
Output Total 2099 / 2099 945 / 945
Balance -1000 / -990.4 965.4 / 965.4
SaO2 99
Nasal Cannula flow liters per 1
minute
Physical Exam
General: Respiratory Distress (n)
HEENT: Normocephalic, Moist Mucous Membranes and Thrush (n)
Cardiovascular: Regular Rhythm, Murmur and Peripheral Edema (n)
Respiratory: Clear, Non-Labored Respirations and Stridor (n)
GI: Soft, Non Distended and Non Tender
Neurology: Awake, Oriented and No Motor Deficits
Skin: Warm
Labs/Micro/Reports
Lab Data
01/06/24 03:44
01/06/24 03:44
Microbiology
01/03/24 13:58 Blood/Venous Blood Culture - Preliminary
No Growth in 48 hours- Final report to follow
01/03/24 13:58 Blood/Venous Blood Culture - Preliminary
No Growth in 48 hours- Final report to follow
01/04/24 06:22 Urine Urine Culture - Final
01/03/24 17:22 Urine Urine Culture - Final
No Significant Growth
[2024-01-06] MEDS: DOPamine 400 MG 250 IV (07:19)
[2024-01-06] MEDS: CARAFATE 1 GRAM PO ×4 (07:20→22:32)
[2024-01-06] MEDS: ProAmatine 10 MG PO ×3 (07:22→18:17)
--- NOTE | 2024-01-06 07:56 | W.PN.ID1 ---
Date of Service
Date of Service: January 06, 2024
Today's Communication
Continue doxycycline
Assessment / Plan
# Tick bite
- Pulled an engorged tick from hip 1 week ago.
Unknown how long engorged tick embedded in hip.
Lyme screen negative which is expected within 2 to 4 weeks of exposure.
- Continue 10-day course of doxycycline 100mg po bid.
- Of note, his hypotension and bradycardia (w/o AV block) are NOT associated with tick-borne illness. Onset too early from time of presumed Borrelia exposure.
# Urinary retention/BPH
- Coude catheter placed 01/04/24
- Urine cx negative (before abx) -> not consistent with UTI/prostatitis.
- DC ceftriaxone.
# Heart failure with worsening EF
# Hypotension- on dopamine
- No infectious etiology identified. Bcx neg, Ucx neg, CXR neg.
# Unintentional 30# weight loss over 2 weeks
# h/o Gastric bypass with chronic nausea, occasional vomiting
%Additional medical history
Atrial fibrillation
CAD s/p stents
Congestive heart failure
Hypertension
Hypercholesterolemia
Peptic ulcer disease
Colonic polyps (pre-cancerous)
History of bladder cancer
Anxiety/depression
Nephrolithiasis
GERD
Bladder ca s/p resection
Gastric bypass (2018)
PTX due to blebs s/p lung resection
Chief Complaint
-: Other (Tick bite)
Subjective / Review of Systems
Review of Systems: No Fever and No Chills
Vital Signs / Physical Exam
Vital Signs
Vital Signs
Temp Pulse Resp BP Pulse Ox
97.6 F 59 16 101/74 99
01/06/24 07:36 01/06/24 06:00 01/06/24 06:00 01/06/24 06:00 01/06/24 06:00
Physical Exam
Constitutional: No Acute Distress, Comfortable and Non-toxic
Eyes: Sclera Anicteric
Cardiovascular: Irregular Rate and S1/S2; Negative S3/S4
Pulmonary: Non Labored
Neurological: Awake and Alert
Psychological: Calm
Objective Data
Lab Data
Lab Results
01/06/24 03:44
01/06/24 03:44
Estimated Creat Clear 53 ml/min 01/06/24 03:44
Lactic Acid 0.9 mmol/L (0.7-2.0) 01/05/24 03:25
Total Bilirubin 1.6 mg/dl (0.2-1.3) H 01/03/24 12:37
AST 19 U/L (17-59) 01/04/24 11:52
ALT 13 U/L (0-50) 01/04/24 11:52
Alkaline Phosphatase 57 U/L (38-126) 01/04/24 11:52
C-Reactive Protein < 5.00 mg/L (0.0-10.00) 01/03/24 12:37
Amylase 69 U/L (30-110) 01/04/24 11:52
Most recent labs reviewed.
Micro Results:
01/03/24 13:58 Blood Culture - Preliminary
Blood/Venous No Growth in 48 hours- Final report to follow
01/03/24 13:58 Blood Culture - Preliminary
Blood/Venous No Growth in 48 hours- Final report to follow
01/04/24 06:22 Urine Culture - Final
Urine
01/03/24 17:22 Urine Culture - Final
Urine No Significant Growth
Imaging:
01/04/24 CT a/p: Mild distention of the left intrarenal calyces and left renal pelvis which has increased since 07/12/2023. No CT evidence for obstructing left ureteral calculus. Large amount of bilateral perinephric edema and small amount of
nonloculated bilateral perinephric fluid which could be secondary to either chronic renal disease or acute pyelonephritis which is not definitively changed. Severe calcific atherosclerotic plaque in the abdominal aorta, iliac, and femoral arteries.
Fusiform infrarenal abdominal aortic aneurysm (2.7 cm AP dimension). Fusiform left common iliac artery aneurysm (1.9 cm short axis diameter). Moderate diffuse urinary bladder wall thickening (possibly secondary to underdistention given the presence
of a Tom catheter in the bladder lumen).
--- NOTE | 2024-01-06 08:11 | W.PN.HOSP.TC ---
Today's Communication/Plan
-
see A/P
Assessment / Plan
Assessment / Plan
HPI: 73-year-old male past medical history notable of A-fib, GERD, CHF; p/w low blood pressure. Patient states that he has chronic low blood pressure (normally systolic in the 100s), however in the morning when he took his blood pressure, he noticed
that his blood pressure was 70/62 and he felt dizzy and lightheaded. He follows at [facility]. He drove his down for her appointment, but is now too weak to drive back.
He endorsed to significant weight loss (30 pounds) in the last 2 weeks, and chronic L sided abdomen pain, associated with significant loss of appetite, nausea and occasional vomiting.
He has been unable to keep down any p.o. meds due to nausea and vomiting.
He is seeing oncologist at [facility], and is currently being worked up for possible stomach cancer; pending endoscopy and abdominal CT.
He denies to fever/chills, chest pain, shortness of breath.
He mentioned that he recently (2 weeks ago) got a tick bite on his left thigh area.
CT AP:
1. Mild distention of the left intrarenal calyces and left renal pelvis which has increased since 07/12/2023. No CT evidence for obstructing left ureteral calculus. Large amount of bilateral perinephric edema and small amount of nonloculated
bilateral perinephric fluid which could be secondary to either chronic renal disease or acute pyelonephritis which is not definitively changed.
2. Severe calcific atherosclerotic plaque in the abdominal aorta, iliac, and femoral arteries. Fusiform infrarenal abdominal aortic aneurysm (2.7 cm AP dimension). Fusiform left common iliac artery aneurysm (1.9 cm short axis diameter).
3. Moderate amount of fecal material and distention of the colon suggesting constipation. Moderate diverticulosis in the descending and sigmoid colon.
4. Cholelithiasis.
5. 3.8 cm left adrenal adenoma.
6. Previous gastric bypass surgery.
7. Moderate diffuse urinary bladder wall thickening (possibly secondary to underdistention given the presence of a Tom catheter in the bladder lumen).
A/P:
# Acute on chronic hypotension likely due to dehydration and now bradycardia
# Shock likely cardiogenic
# Non-sustained VT
CRP neg, TSH WNL at 1.44, random cortisol level WNL at 24
Procal neg, COVID neg, Lyme serology negative (patient endorsed recent tick bite).
Since CRP neg, infectious cause less likely
Blood Cx neg
first urine Cx no significant growth, second with contamination
off empiric ceftriaxone
ID on board
s/p IVF without significant improvement in BP
Dopamine drip started for bradycardia and cardiogenic shock
Plan to transition to high dose midodrine
However, if NSVT persist, card may change course of plan
Echo noted severely reduced left ventricular systolic function. EF 30-35%.
Hold MACHINE CHOCOLATE MOLDER Lasix, Coreg, lisinopril
Lab Tester on board
Eventual PT OT eval when able for weakness
# Acute urinary retention
CT AP without obstructing left ureteral calculus. Large amount of bilateral perinephric edema and small amount of nonloculated bilateral perinephric fluid which could be secondary to either chronic renal disease or acute pyelonephritis which is not
definitively changed.
first urine Cx no significant growth, second with contamination
Off empiric ceftriaxone
Tom placed by Uro
# decreased appetite, abdominal pain, nausea and possibly vomiting ; likely due to underlying cancer with constipation noted on CT AP
# Severe protein caloric malnutrition
He follows oncology at [facility]
He is awaiting work up for possible stomach cancer with an endoscopy and abdominal CT
Of note, patient had an upper endoscopy 07/10 at which noted [place]-colored mucosa suspicious for short-segment Noble's esophagus. Normal stomach and anastomosis. Non-bleeding jejunal ulcer with no stigmata of bleeding.
Continue prior to admission mirtazapine
Cont regular diet
Started bowel regimen Dulcolax x1, Senokot-S, Miralax
# DEVIN from dehydration/poor p.o. intake, resolved
serum creatinine 1.7 -> 1.1, baseline from 06/2023 at 1.0
# Bradycardia with likely chronic A fib
EKG with A fib but slow HR
Echo noted severely reduced left ventricular systolic function. EF 30-35%.
Dopamine drip as stated above
Card on board
Pt informed that he prefers cardiac work up at [facility]
# Mild Hyponatremia, resolved
Monitor
# Mild hyperkalemia , resolved
# Hypothermia likely due to poor body reserve with severe protein caloric malnutrition on admission , resolved
rebecca hugger PRN
# Incidental finding of 3.8 cm left adrenal adenoma.
Informed pt and family that he can follow up with endo outpt for this
# Severe calcific atherosclerotic plaque in the abdominal aorta, iliac, and femoral arteries. Fusiform infrarenal abdominal aortic aneurysm (2.7 cm AP dimension). Fusiform left common iliac artery aneurysm (1.9 cm short axis diameter).
Informed pt and family that he can follow up with vascular surgeon outpt for this
Chronic medical conditions
# History of peptic ulcer disease/GERD
# History of gastric bypass
Continue prior to admission Protonix twice daily and Carafate
# Atrial fibrillation unspecified type
Hold MACHINE CHOCOLATE MOLDER coreg
He no longer is on Eliquis due to cost (his outpatient molder apprentice is aware of this, and is okay with holding off Eliquis)
# Coronary disease status post stents x2
# Chronic heart failure unspecified type
# Essential hypertension
Hold MACHINE CHOCOLATE MOLDER Coreg, Lasix, lisinopril due to hypotension
# Bladder cancer
# Hypercholesterolemia
Continue statin
# History of kidney stones
# Anxiety/depression
Continue mirtazapine
# History of gastric bypass surgery 6 years ago
Full code
DVT prophylaxis� HSQ
DW Card
DW daughter on the phone
total time spent 51 min
Anticipated Discharge: > 48 hours
Subjective/Interval History
-
Date of Service: January 06, 2024
Objective Data
-
Labs:
Laboratory Results
01/06/24 01/06/24
03:44 08:05
WBC 6.2
Hgb 11.8 L
Hct 36.9 L
Plt Count 155
Sodium 134 L Pending
Potassium 5.3 H Pending
Chloride 105 Pending
Carbon Dioxide 30 Pending
BUN 26 H Pending
Creatinine 1.1 Pending
Glucose 95 Pending
Calcium 8.7 Pending
Vital Signs:
Vital Signs
Temp Pulse Resp BP Pulse Ox
36.4 C 59 16 101/74 99
01/06/24 07:36 01/06/24 06:00 01/06/24 06:00 01/06/24 06:00 01/06/24 06:00
I&O
01/05/24 01/06/24 01/07/24
06:59 06:59 06:59
Intake Total 1100 / 1109.6 1910.4 / 1920.0 9.6 / 9.6
Output Total 2099 / 2099 945 / 945
Balance -1000 / -990.4 965.4 / 975.0 9.6 / 9.6
Review of Systems
-
All other systems: Reviewed and negative
Physical Exam
-
General: Well Developed, No Apparent Distress, Comfortable, Conversant, Appears Chronically Ill and Cachectic
HEENT: Normocephalic and Atraumatic
Respiratory: Clear to Auscultation and Non Labored Respirations; Negative Wheezes, Rales, Rhonchi or Accessory Resp Muscle Use
Cardiac: S1/S2, Irregular Rhythm and Bradycardic
GI: Soft, Nontender, Nondistended and Normal Bowel Sounds
Musculoskeletal: No Clubbing, No Cyanosis and No Edema
Skin: Warm and Dry
Neuro: Awake, Alert and Oriented
Psych: Calm and Intact Judgement/Insight
Data Reviewed
-
CT Scan: Report Reviewed by me
Labs: Labs Reviewed by me
--- NOTE | 2024-01-06 08:27 | W.PN.URO.CBU ---
Today's Communication / Plan
-
continue brown
no evid of UTI
as pt clinical status improves- will discuss if initiation of flomax is possibel and timing of brown removal for TOV
Assessment / Plan
-
73M admitted for acute on chronic hypotension of unclear etiology, chronic abdominal pain, DEVIN, urinary retention
Urology consulted for difficult brown
UTI
- Some symptoms of UTI/prostatitis a few days prior to admission with cloudy urine and development of retention
- Continue ceftriaxone pending culture
- No evidence of ureteral obstruction on CT 01/04
Urinary retention
- 18Fr coude catheter placed with 500cc clear yellow urine
- Maintain brown until nearing discharge - remove in early AM for trial of void with bladder scan post void
- Can start tamsulosin 0.4mg daily and continue through discharge if BP supports it. Would hold this until any hypotension concerns are resolved
Bladder cancer
- Unclear history from patient and family - he had something removed in [place] a few years ago but was told after he did not need any surveillance. This does not sound like bladder cancer
- Outpatient follow up to review records and schedule eventual cystoscopy
Diagnosis
-
Date of Service: January 06, 2024
-
Patient Diagnosis:
Urinary Retention
UTI
Hx of Bladder cancer
Subjective
-
pt feeling a little better
urine clear
cx's negative
Objective
-
Vital Signs
Temp Pulse Resp BP Pulse Ox
97.6 F 59 16 101/74 99
01/06/24 07:36 01/06/24 06:00 01/06/24 06:00 01/06/24 06:00 01/06/24 06:00
Intake and Output
01/05/24 01/06/24 01/07/24
06:59 06:59 06:59
Intake Total 1100 / 1109.6 1910.4 / 1920.0 9.6 / 9.6
Output Total 2099 / 2099 945 / 945
Balance -1000 / -990.4 965.4 / 975.0 9.6 / 9.6
Intake:
Oral fluids 480 / 480 1680 / 1680
IV fluids (Total) 620 / 629.6 230.4 / 240.0 9.6 / 9.6
dopamine 120 / 129.6 230.4 / 240.0 9.6 / 9.6
Output:
Emesis 50 / 50
Urine, Brown 1950 / 1949 895 / 895
Urine, Voided 150 / 150
Laboratory Results
01/06/24 03:44
Physical Exam
-
General - no acute distress
Abdomen - soft, non-tender
Genitalia - brown in place
--- NOTE | 2024-01-06 08:33 | PTCARENOTE ---
Pt had run of vtach this am. Dr Cheyanne mcdermott texted. Orders noted. Weaning dopa as able.
[2024-01-06] MEDS: FLOMAX 0.400000000000000022 MG PO (08:45)
[2024-01-06] MEDS: MIRALAX 17 GRAMS PO (08:45)
[2024-01-06] MEDS: ASPIR LOW (ENTERIC COATED) 81 MG PO (08:45)
[2024-01-06] MEDS: HEPARIN 5000 UNITS SC ×2 (08:45→20:17)
[2024-01-06] MEDS: VITAMIN B-12 100 MCG PO (08:46)
[2024-01-06] MEDS: SENOKOT-S 1 TABLET PO ×2 (08:46→20:17)
[2024-01-06] MEDS: VIBRAMYCIN 100 MG PO ×2 (08:46→20:17)
[2024-01-06] MEDS: PROSCAR 5 MG PO (08:46)
[2024-01-06] MEDS: PROTONIX 40 MG PO ×2 (08:46→20:17)
[2024-01-06 09:37] LABS: Albumin 3.1 g/dl (3.5-5.0); Blood Urea Nitrogen 25 mg/dl (9-20); Calcium 8.9 mg/dl (8.4-10.2); Carbon Dioxide 28 mmol/L (22-30); Chloride 103 mmol/L (98-107); Estimated Creatinine Clearance 58 ml/min; Glucose 84 mg/dl (70-99); Phosphorus 3.2 mg/dl (2.5-4.5); Potassium 5.1 mmol/L (3.5-5.1); Sodium 133 mmol/L (135-145); eGFR > 60.00
[2024-01-06 09:49] LABS: Troponin I < 0.012 ng/ml
--- NOTE | 2024-01-06 11:45 | PTCARENOTE ---
dopamine currently turned off. pt nauseated with eating cereal stopped eating, encouraged to eat protein pudding/roland clear.
--- NOTE | 2024-01-06 12:27 | PTCARENOTE ---
No changes. Pt took a long time to get supplements down, but did eat pudding and continues to work on ensure clear. Does not want lunch. No further vtach noted.
[2024-01-06 15:54] LABS: Troponin I < 0.012 ng/ml
--- NOTE | 2024-01-06 16:00 | PTCARENOTE ---
Pt to br, had lg formed bm per pt. Care done, again up in chair. Visiting with family. Remains off dopa. BP in 90s prior to afternoon dose of midodrine, but improved after. Otherwise no changes.
--- NOTE | 2024-01-06 17:39 | PTCARENOTE ---
Dr dEward called and was given update. Aware pt is off dopa and trop negative. No new orders at this time.
--- NOTE | 2024-01-06 20:32 | PTCARENOTE ---
Pt Aox3, VSS, RODRIGUEZ, Afib on monitor, denies pain. BP 110/83. Pt is cachectic. Tom in place, draining yellow urine with sediment.
[2024-01-06] MEDS: LIPITOR 40 MG PO (22:27)
[2024-01-06] MEDS: REMERON 15 MG PO (22:27)
[2024-01-06] MEDS: TRUSOPT 2% OPHTHALMIC SOLUTION 1 DROP BOTH EYES (22:30)
[2024-01-06] MEDS: ALPHAGAN 0.2% EYE DROPS 1 DROP BOTH EYES (22:30)
[2024-01-07] VITALS (24 sets, daily range): BP systolic 88–118; BP diastolic 51–88; PULSE 59; BMI 21.0
--- NOTE | 2024-01-07 01:32 | PTCARENOTE ---
Assessment unchanged, pt sleeping comfortably in bed.
[2024-01-07 04:39] LABS: Hematocrit 36.8 % (39.0-52.0); Hemoglobin 11.5 g/dL (13.0-18.0); Mean Corp Hgb Conc. 31.3 g/dL (33.0-37.0); Mean Corpuscular Hgb 26.1 pg (27.0-31.0); Mean Corpuscular Volume 83.6 fL (80.0-94.0); Mean Platelet Volume 10.6 fL (7.4-10.4); Platelet Count 143 10^3/uL (130-400); White Blood Cell Count 5.6 10^3/uL (4.8-10.8)
[2024-01-07 05:02] LABS: Blood Urea Nitrogen 23 mg/dl (9-20); Calcium 8.9 mg/dl (8.4-10.2); Carbon Dioxide 26 mmol/L (22-30); Chloride 102 mmol/L (98-107); Estimated Creatinine Clearance 58 ml/min; Glucose 73 mg/dl (70-99); Potassium 4.9 mmol/L (3.5-5.1); Sodium 133 mmol/L (135-145); eGFR > 60.00
--- NOTE | 2024-01-07 06:56 | W.PN.CD ---
Today's Communication / Plan
-
Off dopamine for nearly 24 hours with no long pauses. Continue to monitor off dopamine.
Also no recurrence of NSVT now the dopamine has been discontinued.
Continue midodrine as prescribed
Patient still reports limited oral intake and difficulty eating which goes along with a significant weight loss prior to admission. Schedule for outpatient GI assessment but may need additional inpatient input.
Impression / Plan
-
Dizziness/hypotensive/bradycardic on arrival
- improved
- Holding Coreg, lisinopril
- Holding BB eye drops
- Presumably due to acute medical illness on top of his ischemic cardiomyopathy
- Midodrine 10mg TID
- His BP has been on the low side during admit here in 06/2023
Bradycardia- afib with slow ventricular response.
- now off BB.
- Off Dopamine. some asymptomatic bradycardia with no long pauses ovenight
- continue to assess need for pacing off Dopa.
NSVT - Occurred on Dopa. no recurrence off Dopamine
CAD
Ischemic cardiomyopathy (Echo here 01/04/2024 LVEF 30-35% with mild AR)
- His child therapist in [place] is aware of a decline in EF and has offered cath
- GDMT limited by BP
Permanent AFib, he stopped Eliquis (cost) and his child therapist in [facility] plans on Watchman
UTI - ecoli
- tx per hospitalists and urology
Unintentional weight loss
- ? etiology, Still issues with eating por appetite. some nausea.
- needs GI assessment
Eye disease
- His eye drops are on hold, may need alternative therapy
Physical Exam
Vital Signs/Labs
Vital Signs
Temp Pulse Resp BP Pulse Ox
98.6 F 54 15 93/52 99
01/07/24 04:11 01/07/24 06:00 01/07/24 06:00 01/07/24 06:00 01/06/24 20:40
01/05/24 01/06/24 01/07/24
06:59 06:59 06:59
Actual Weight 63.2 kg 64.4 kg
01/07/24 04:04
01/07/24 04:04
Magnesium 2.2 mg/dl (1.6-2.3) 01/06/24 03:44
LAB Results
01/04/24 01/04/24 01/05/24
11:52 20:03 03:25
Troponin I < 0.012 < 0.012 < 0.012
01/06/24 01/06/24
08:54 14:59
Troponin I < 0.012 < 0.012
Physical Exam
Constitutional: No acute distress
Cardiovascular: Rhythm/rate is irregular
Respiratory: Respiratory effort normal
GI: Soft
Neuro/Psych: Alert
Data Reviewed
-
Date of Service: January 07, 2024
Medical Decision Making: Reviewed Test Results
EKG: Report Reviewed by me
X-Ray/CT/US/MRI/NUC/PET: Report Reviewed by me
Medical Tests (PFT, Pathology etc): Report Reviewed by me
Labs: Labs Reviewed by me
Critical Care Time (in minutes): 30
--- NOTE | 2024-01-07 07:00 | W.PN.INTV ---
Today's Communication / Plan
Recommendations
Midodrine
Doxyc
Reconsult prn
Assessment
-
Assessment:
Mr Blaine Mccormick is a 73/M adm 01-02 with acute on chronic hypotension (chronic SBP 100s) on morning of adm along dizziness, 30 lbs wt loss in last 2 wks, recent tick bite. Reported chronic abd pain currently on GI work up at [facility], pending endoscopy
and abd CT, working diagnosis stomach cancer. At ER, BP 93/61, HR 71, then down to BP 81/55 and HR 60, started on IVFs, added empiric ceftriaxone on 01-03. Bradycardia worsened, noted h/o CAD s/p stenting and ICM with LVEF 45-50%, AFib not on AC due
to h/o bleeding and affordability issues. Transferred to ICU after cards evaluation to initiate dopamine gtt
Impression:
Bradycardia
Hypotension, acute on chronic
Ac/chronic HF
Mild lactic acidosis, resolved
Normal PCT
Normal random cortisol
Microhematuria, bacteriuria
Suspected UTI/prostatitis
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
AFib
CAD s/p stents, ICM, LVEF 30-35% (TTE 01-03 at . LVEF was 45-50% in Jun 2023)
HTN
GERD
PUD
Gastric bypass 6 y ago: postprandial vomit since then but recently worsened. See GI in [facility], pending UGED to rule out gastric cancer
HLD
Cholelithiasis
L blebectomy for pneumothorax 2-3 y ago in [place] (thoracotomy)
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
BPH, obstructive uropathy
Nephrolithiasis
Former smoker
Plan:
Transferred to ICU for management of worsening bradycardia, hypotension and suspected sepsis
Resp mota remains stable on RA, POx 97%, conversant
Keep asp precs
IS
Bradycardia and acute on chronic hypotension
Ac/chronic HF
TTE 01-03: LVEF 30-35%, s regional abnormalities, mild AR, enlarged RV size with normal systolic function
Suspected sepsis, unknown origin, no evidence of UTI
UCx 01-02 negative, 01-03 contaminated
Tom placed by urology 01-03: turbid urine with apparent sediment
Noted h/o BPH with difficulty voiding and h/o nephrolithiasis
D/w Dr Sinha 01-04, no actionable CT abd/p findings
CT abd/p 01-03 c/w CT Jun 2023 with small bilateral nonobstructive renal calculi and cholelithiasis. As noted below
Blood cxs NTD
Started on empiric ceftriaxone 01-03
Reportedly tick bite in L buttock, unknown attachment time but likely few weeks until finally realized a tick was attached, denies erythema around tick attachment, only outside activities in his home yard. Denies erythema migrans
Lyme screen negative, expected within 2-4 wks of exposure, no suspicion for cardiac involvement
Seen by ID, ceftriaxone d/c and started on po doxycycline to complete 10 d course
RUE PICC placed 01-04, no pulm infiltrate
Started dopamine for bradycardia, hypotension. Known h/o chronic hypotension with SBP in 100s
Requiring low dose dopamine with low normal BP (baseline) and improved bradycardia
NSVT while on dopamine, now dopamine off since yesterday, no recurrence of NSVT
Agree with resumption of midodrine: 10 mg tid, continue
Patient advised to increase oral intake of food and fluids, reports poor appetite
Wt loss work up in progress at [facility]
Pending scheduling UGED at [facility]: reportedly to rule out gastric cancer
Chronic AFib, not on AC due to h/o bleeding
Pending Watchman procedure at [facility]
Continue PPI
Sc hep
D/w and Mrs Mccormick and their daughter at bedside
Can transfer back to IMU/telemetry
Reconsult as needed
CT abd/p s/c 01-03:
IMPRESSION:
1. Mild distention of the left intrarenal calyces and left renal pelvis which has increased since 07/12/2023. No CT evidence for obstructing left ureteral calculus. Large amount of bilateral perinephric edema and small amount of nonloculated
bilateral perinephric fluid which could be secondary to either chronic renal disease or acute pyelonephritis which is not definitively changed.
2. Severe calcific atherosclerotic plaque in the abdominal aorta, iliac, and femoral arteries. Fusiform infrarenal abdominal aortic aneurysm (2.7 cm AP dimension). Fusiform left common iliac artery aneurysm (1.9 cm short axis diameter).
3. Moderate amount of fecal material and distention of the colon suggesting constipation. Moderate diverticulosis in the descending and sigmoid colon.
4. Cholelithiasis.
5. 3.8 cm left adrenal adenoma.
6. Previous gastric bypass surgery.
7. Moderate diffuse urinary bladder wall thickening (possibly secondary to underdistention given the presence of a Tom catheter in the bladder lumen).
Subjective Dataa
Subjective Data
Date of Service:
Date of Service: January 07, 2024
Chief Complaint: Hurricane Tracker Follow Up
Subjective:
No major events reported overnight
Off low-dose dopamine drip since yesterday, per RN close to 24 hours by now
Oral intake is still poor, due to combination of poor appetite and abdominal discomfort
Respiratory mota remains stable on room air, has no respiratory symptoms
Remains afebrile
Review of Systems
General: Fever (n), Sweats (n), Chills (n) and Satisfactory Appetite
HEENT: Epistaxis (n)
Cardiopulmonary: Dyspnea (n), Cough (n) and Chest Pain (n)
GI: Abdominal Pain (discomfort)
Neuro: Weakness
Objective Data
Data Reviewed
Vital Signs / I&O / Oxygen:
Vital Signs
Temp Pulse Resp BP Pulse Ox
98.6 F 54 15 93/52 99
01/07/24 04:11 01/07/24 06:00 01/07/24 06:00 01/07/24 06:00 01/06/24 20:40
Intake and Output
01/06/24 01/07/24 01/08/24
06:59 06:59 06:59
Intake Total 1910.4 / 1920.0 511.3 / 511.3
Output Total 945 / 945 875 / 875
Balance 965.4 / 975.0 -363.7 / -363.7
SaO2 99
Nasal Cannula flow liters per 1
minute
Physical Exam
General: Respiratory Distress (n) and Other (cachexia )
HEENT: Normocephalic, Moist Mucous Membranes and Thrush (n)
Cardiovascular: Regular Rhythm, Murmur and Peripheral Edema (n)
Respiratory: Clear, Non-Labored Respirations and Stridor (n)
GI: Soft, Non Distended, Non Tender and Other (scaphoid abd)
Neurology: Awake, Oriented and No Motor Deficits
Skin: Warm
Labs/Micro/Reports
Lab Data
01/07/24 04:04
01/07/24 04:04
Microbiology
01/03/24 13:58 Blood/Venous Blood Culture - Preliminary
No Growth in 72 hours- Final report to follow
01/03/24 13:58 Blood/Venous Blood Culture - Preliminary
No Growth in 72 hours- Final report to follow
01/04/24 06:22 Urine Urine Culture - Final
01/03/24 17:22 Urine Urine Culture - Final
No Significant Growth
--- NOTE | 2024-01-07 07:40 | W.PN.ID1 ---
Date of Service
Date of Service: January 07, 2024
Today's Communication
Continue current course of doxycycline.
Assessment / Plan
# Tick bite
- Pulled an engorged tick from hip 1 week ago.
Unknown how long engorged tick embedded in hip.
Lyme screen negative, which is expected within 2 to 4 weeks of exposure.
- Continue 10-day course of doxycycline 100mg po bid.
- Of note, his hypotension and bradycardia (w/o AV block) are NOT associated with tick-borne illness. Onset too early from time of presumed Borrelia exposure.
# Urinary retention/BPH
- Coude catheter placed 01/04/24
- Urine cx negative (before abx) -> not consistent with UTI/prostatitis.
# Heart failure with worsening EF
# Hypotension - s/p dopamine
- No infectious etiology identified. Bcx neg, Ucx neg, CXR neg.
# Unintentional 30# weight loss over 2 weeks
# h/o Gastric bypass with chronic nausea, occasional vomiting
%Additional medical history
Atrial fibrillation
CAD s/p stents
Congestive heart failure
Hypertension
Hypercholesterolemia
Peptic ulcer disease
Colonic polyps (pre-cancerous)
History of bladder cancer
Anxiety/depression
Nephrolithiasis
GERD
Bladder ca s/p resection
Gastric bypass (2018)
PTX due to blebs s/p lung resection
Chief Complaint
-: Other (Tick bite)
Subjective / Review of Systems
Review of Systems: No Fever
Vital Signs / Physical Exam
Vital Signs
Vital Signs
Temp Pulse Resp BP Pulse Ox
98.6 F 54 15 93/52 99
01/07/24 04:11 01/07/24 06:00 01/07/24 06:00 01/07/24 06:00 01/06/24 20:40
Physical Exam
Physical Exam:
Constitutional: No Acute Distress, Comfortable and Non-toxic
Cardiovascular: Irregular Rate and S1/S2; Negative S3/S4
Pulmonary: Non Labored
Neurological: Resting comfortably.
Psychological: Calm
Objective Data
Lab Data
Lab Results
01/07/24 04:04
01/07/24 04:04
Estimated Creat Clear 58 ml/min 01/07/24 04:04
Lactic Acid 0.9 mmol/L (0.7-2.0) 01/05/24 03:25
Total Bilirubin 1.6 mg/dl (0.2-1.3) H 01/03/24 12:37
AST 19 U/L (17-59) 01/04/24 11:52
ALT 13 U/L (0-50) 01/04/24 11:52
Alkaline Phosphatase 57 U/L (38-126) 01/04/24 11:52
C-Reactive Protein < 5.00 mg/L (0.0-10.00) 01/03/24 12:37
Amylase 69 U/L (30-110) 01/04/24 11:52
Most recent labs reviewed.
Micro Results:
01/03/24 13:58 Blood Culture - Preliminary
Blood/Venous No Growth in 72 hours- Final report to follow
01/03/24 13:58 Blood Culture - Preliminary
Blood/Venous No Growth in 72 hours- Final report to follow
01/04/24 06:22 Urine Culture - Final
Urine
01/03/24 17:22 Urine Culture - Final
Urine No Significant Growth
Imaging:
01/04/24 CT a/p: Mild distention of the left intrarenal calyces and left renal pelvis which has increased since 07/12/2023. No CT evidence for obstructing left ureteral calculus. Large amount of bilateral perinephric edema and small amount of
nonloculated bilateral perinephric fluid which could be secondary to either chronic renal disease or acute pyelonephritis which is not definitively changed. Severe calcific atherosclerotic plaque in the abdominal aorta, iliac, and femoral arteries.
Fusiform infrarenal abdominal aortic aneurysm (2.7 cm AP dimension). Fusiform left common iliac artery aneurysm (1.9 cm short axis diameter). Moderate diffuse urinary bladder wall thickening (possibly secondary to underdistention given the presence
of a Tom catheter in the bladder lumen).
--- NOTE | 2024-01-07 08:11 | W.PN.HOSP.TC ---
Addendum entered and electronically signed by Lucy Linton MD 01/07/24 08:31:
# Pt started with doxycycline by ID to cover for Lyme's disease.
Timing of exposure may be too soon for Lyme serology to turn positive
Original Note:
Today's Communication/Plan
-
see A/P
Assessment / Plan
Assessment / Plan
HPI: 73-year-old male past medical history notable of A-fib, GERD, CHF; p/w low blood pressure. Patient states that he has chronic low blood pressure (normally systolic in the 100s), however in the morning when he took his blood pressure, he noticed
that his blood pressure was 70/62 and he felt dizzy and lightheaded. He follows at [facility]. He drove his down for her appointment, but is now too weak to drive back.
He endorsed to significant weight loss (30 pounds) in the last 2 weeks, and chronic L sided abdomen pain, associated with significant loss of appetite, nausea and occasional vomiting.
He has been unable to keep down any p.o. meds due to nausea and vomiting.
He is seeing oncologist at [facility], and is currently being worked up for possible stomach cancer; pending endoscopy and abdominal CT.
He denies to fever/chills, chest pain, shortness of breath.
He mentioned that he recently (2 weeks ago) got a tick bite on his left thigh area.
CT AP:
1. Mild distention of the left intrarenal calyces and left renal pelvis which has increased since 07/12/2023. No CT evidence for obstructing left ureteral calculus. Large amount of bilateral perinephric edema and small amount of nonloculated
bilateral perinephric fluid which could be secondary to either chronic renal disease or acute pyelonephritis which is not definitively changed.
2. Severe calcific atherosclerotic plaque in the abdominal aorta, iliac, and femoral arteries. Fusiform infrarenal abdominal aortic aneurysm (2.7 cm AP dimension). Fusiform left common iliac artery aneurysm (1.9 cm short axis diameter).
3. Moderate amount of fecal material and distention of the colon suggesting constipation. Moderate diverticulosis in the descending and sigmoid colon.
4. Cholelithiasis.
5. 3.8 cm left adrenal adenoma.
6. Previous gastric bypass surgery.
7. Moderate diffuse urinary bladder wall thickening (possibly secondary to underdistention given the presence of a Tom catheter in the bladder lumen).
A/P:
# Acute on chronic hypotension likely due to dehydration and now bradycardia
# Shock likely cardiogenic
# Non-sustained VT
CRP neg, TSH WNL at 1.44, random cortisol level WNL at 24
Procal neg, COVID neg, Lyme serology negative (patient endorsed recent tick bite).
Since CRP neg, infectious cause less likely
Blood Cx neg
first urine Cx no significant growth, second with contamination
off empiric ceftriaxone
ID on board
s/p IVF without significant improvement in BP
Dopamine drip was started for bradycardia and cardiogenic shock, now off dopamine drip and non-sustained VT has not recurred
Continue high dose midodrine 10mg TID for BP support
Echo noted severely reduced left ventricular systolic function. EF 30-35%.
Hold RESIDENTIAL GLAZIER Lasix, Coreg, lisinopril
Backend Tester on board
PT OT eval
# Acute urinary retention
CT AP without obstructing left ureteral calculus. Large amount of bilateral perinephric edema and small amount of nonloculated bilateral perinephric fluid which could be secondary to either chronic renal disease or acute pyelonephritis which is not
definitively changed.
first urine Cx no significant growth, second with contamination
Off empiric ceftriaxone
Tom placed by Uro due to resistance when attempted by RN
Cont Proscar and Flomax (with holding parameter)
# decreased appetite, abdominal pain, nausea and possibly vomiting ; likely due to underlying cancer with constipation noted on CT AP
# Severe protein caloric malnutrition
He follows oncology at [place]
He is awaiting work up for possible stomach cancer with an endoscopy and abdominal CT
Of note, patient had an upper endoscopy 10/23 at which noted [place]-colored mucosa suspicious for short-segment Noble's esophagus. Normal stomach and anastomosis. Non-bleeding jejunal ulcer with no stigmata of bleeding.
Continue prior to admission mirtazapine
Cont regular diet
Started bowel regimen Dulcolax x1, Senokot-S BID, Miralax daily
# DEVIN from dehydration/poor p.o. intake, resolved
serum creatinine 1.7 -> 1.0, baseline from 06/2023 at 1.0
# Bradycardia with likely chronic A fib
EKG with A fib but slow HR
Echo noted severely reduced left ventricular systolic function. EF 30-35%.
Off Dopamine drip as stated above
Card on board
# Mild Hyponatremia, resolved
Monitor
# Mild hyperkalemia , resolved
# Hypothermia likely due to poor body reserve with severe protein caloric malnutrition on admission , resolved
rebecca robert PRN
# Incidental finding of 3.8 cm left adrenal adenoma.
Informed pt and family that he can follow up with endo outpt for this
# Severe calcific atherosclerotic plaque in the abdominal aorta, iliac, and femoral arteries. Fusiform infrarenal abdominal aortic aneurysm (2.7 cm AP dimension). Fusiform left common iliac artery aneurysm (1.9 cm short axis diameter).
Informed pt and family that he can follow up with vascular surgeon outpt for this
Chronic medical conditions
# History of peptic ulcer disease/GERD
# History of gastric bypass
Continue prior to admission Protonix twice daily and Carafate
# Atrial fibrillation unspecified type
Hold RESIDENTIAL GLAZIER coreg
He no longer is on Eliquis due to cost (his outpatient car examiner is aware of this, and is okay with holding off Eliquis)
# Coronary disease status post stents x2
# Chronic heart failure unspecified type
# Essential hypertension
Hold RESIDENTIAL GLAZIER Coreg, Lasix, lisinopril due to hypotension
# Bladder cancer
# Hypercholesterolemia
Continue statin
# History of kidney stones
# Anxiety/depression
Continue mirtazapine
# History of gastric bypass surgery 6 years ago
Full code
DVT prophylaxis� HSQ
DW Card
DW daughter on the phone
Anticipated Discharge: Within 24 hours
Subjective/Interval History
-
Date of Service: January 07, 2024
Objective Data
-
Labs:
Laboratory Results
01/07/24
04:04
WBC 5.6
Hgb 11.5 L
Hct 36.8 L
Plt Count 143
Sodium 133 L
Potassium 4.9
Chloride 102
Carbon Dioxide 26
BUN 23 H
Creatinine 1.0
Glucose 73
Calcium 8.9
Vital Signs:
Vital Signs
Temp Pulse Resp BP Pulse Ox
37.0 C 54 15 93/52 99
01/07/24 04:11 01/07/24 06:00 01/07/24 06:00 01/07/24 06:00 01/06/24 20:40
I&O
01/06/24 01/07/24 01/08/24
06:59 06:59 06:59
Intake Total 1910.4 / 1920.0 511.3 / 511.3
Output Total 945 / 945 875 / 875
Balance 965.4 / 975.0 -363.7 / -363.7
Review of Systems
-
All other systems: Reviewed and negative
Physical Exam
-
General: Well Developed, No Apparent Distress, Comfortable, Conversant, Appears Chronically Ill and Cachectic
HEENT: Normocephalic and Atraumatic
Respiratory: Clear to Auscultation and Non Labored Respirations; Negative Wheezes, Rales, Rhonchi or Accessory Resp Muscle Use
Cardiac: S1/S2 and Irregular Rhythm
GI: Soft, Nontender, Nondistended and Normal Bowel Sounds
Musculoskeletal: No Clubbing, No Cyanosis and No Edema
Skin: Warm and Dry
Neuro: Awake, Alert and Oriented
Psych: Calm and Intact Judgement/Insight
Data Reviewed
-
CT Scan: Report Reviewed by me
Labs: Labs Reviewed by me
--- NOTE | 2024-01-07 09:00 | PTCARENOTE ---
pt drowsy this am , NSR on monitor , BP 95/61, pt off of Dopamine 01/06 11:44 , pt very poor appetite , pt seen by hospitalist
[2024-01-07] MEDS: CARAFATE 1 GRAM PO ×4 (09:42→22:17)
[2024-01-07] MEDS: SENOKOT-S 1 TABLET PO ×2 (09:42→20:34)
[2024-01-07] MEDS: FLOMAX 0.400000000000000022 MG PO (09:42)
[2024-01-07] MEDS: PROTONIX 40 MG PO ×2 (09:42→20:33)
[2024-01-07] MEDS: ProAmatine 10 MG PO ×3 (09:43→17:19)
[2024-01-07] MEDS: VIBRAMYCIN 100 MG PO ×2 (09:43→20:33)
[2024-01-07] MEDS: ASPIR LOW (ENTERIC COATED) 81 MG PO (09:43)
[2024-01-07] MEDS: VITAMIN B-12 100 MCG PO (09:43)
[2024-01-07] MEDS: HEPARIN 5000 UNITS SC ×2 (09:43→20:34)
[2024-01-07] MEDS: PROSCAR 5 MG PO (09:43)
[2024-01-07] MEDS: MIRALAX 17 GRAMS PO (09:44)
--- NOTE | 2024-01-07 15:04 | PTCARENOTE ---
no change in assessments , pt oob in chair , family visiting and updated on plan of care and condition
--- NOTE | 2024-01-07 20:00 | PTCARENOTE ---
Pt received awake alert and oriented. Afib on monitor. Assessment as charted.
[2024-01-07] MEDS: LIPITOR 40 MG PO (22:17)
[2024-01-07] MEDS: REMERON 15 MG PO (22:18)
[2024-01-07] MEDS: ALPHAGAN 0.2% EYE DROPS 1 DROP BOTH EYES (22:18)
[2024-01-07] MEDS: TRUSOPT 2% OPHTHALMIC SOLUTION 1 DROP BOTH EYES (22:18)
[2024-01-08] VITALS (16 sets, daily range): BP systolic 92–128; BP diastolic 63–88
[2024-01-08 04:44] LABS: Hematocrit 36.3 % (39.0-52.0); Hemoglobin 11.5 g/dL (13.0-18.0); Mean Corp Hgb Conc. 31.7 g/dL (33.0-37.0); Mean Corpuscular Hgb 26.7 pg (27.0-31.0); Mean Corpuscular Volume 84.2 fL (80.0-94.0); Mean Platelet Volume 10.8 fL (7.4-10.4); Platelet Count 134 10^3/uL (130-400); Red Blood Cell Count 4.31 10^6/uL (4.70-6.10); White Blood Cell Count 5.2 10^3/uL (4.8-10.8)
[2024-01-08 05:07] LABS: Blood Urea Nitrogen 23 mg/dl (9-20); Calcium 8.8 mg/dl (8.4-10.2); Carbon Dioxide 28 mmol/L (22-30); Chloride 103 mmol/L (98-107); Estimated Creatinine Clearance 59 ml/min; Glucose 81 mg/dl (70-99); Sodium 133 mmol/L (135-145); eGFR > 60.00
--- NOTE | 2024-01-08 05:28 | PTCARENOTE ---
Pt sleeping when undisturbed. No complaints offered.
--- NOTE | 2024-01-08 08:30 | W.PN.CD ---
Today's Communication / Plan
-
continue midodrine
hold GDMT as is limited by hypotension and hr
further evaluation of GI issues
would consider discharge if able to ambulate and tolerate po so that he can follow plans underway at the [facility]
Impression / Plan
-
Dizziness/hypotensive/bradycardic on arrival
- improved, off dopamine and rates in 50-60's without significant pauses
-feeling better, hasn't been dizzy in 2 days
- Holding Coreg, lisinopril--will not resume during this hospitalization, can readdress with OP cardiolgy where he lives.
- Holding BB eye drops--defer to medicine
- Presumably due to acute medical illness on top of his ischemic cardiomyopathy
- Midodrine 10mg TID--can continue and wean off as op
- His BP has been on the low side during admit here in 06/2023
Bradycardia- afib with slow ventricular response.
- now off BB.
-currently no indication for acute ppm
-given bradycardia and cmy, may consider ppm-icd, however important to evaluate his unexplained weight loss before we wiely to devices, as unclear what his overall prognoisis is right now.
NSVT - Occurred on Dopa. no recurrence off Dopamine
CAD
Ischemic cardiomyopathy (Echo here 01/04/2024 LVEF 30-35% with mild AR)
- His mutual fund accountant in [place] is aware of a decline in EF and has offered cath--planning under way
- GDMT limited by BP
Permanent AFib, he stopped Eliquis (cost) and his mutual fund accountant in [facility] plans on Watchman with transient warfarin to follow
UTI - ecoli
- tx per hospitalists and urology
Unintentional weight loss
- ? etiology, Still issues with eating poor appetite. He has extensive nausea and feeling as though food stuck in chest after just a mouthful
- needs GI assessment
Eye disease
- His eye drops are on hold, may need alternative therapy
Subjective:
he is feeling better asking about going home. He has follow up with cardiology and GI planned at his typical op providers.
Physical Exam
Vital Signs/Labs
Vital Signs
Temp Pulse Resp BP Pulse Ox
97.7 F 62 20 98/75 95
01/08/24 07:19 01/08/24 06:00 01/08/24 06:00 01/08/24 06:00 01/08/24 06:00
01/07/24 01/08/24 01/09/24
06:59 06:59 06:59
Actual Weight 64.4 kg
01/08/24 04:20
01/08/24 04:20
Magnesium 2.2 mg/dl (1.6-2.3) 01/06/24 03:44
LAB Results
01/06/24 01/06/24
08:54 14:59
Troponin I < 0.012 < 0.012
Physical Exam
Constitutional: No acute distress and Other ( cachectic)
Cardiovascular: Rhythm & rate is regular, Pedal edema is absent, JVD pressure is normal and Systolic murmur absent
Respiratory: Respiratory effort normal, Lungs clear to auscul., Wheeze Absent, Crackles Absent and Rhonchi Absent
Neuro/Psych: AO x 3
Data Reviewed
-
Date of Service: January 08, 2024
X-Ray/CT/US/MRI/NUC/PET: Discussed with Physician (hold GDMT, send on midodrine,) and Discussed with Patient (discussed ongoing follow up with [facility] cardiology)
[2024-01-08] MEDS: ProAmatine 10 MG PO ×2 (08:33→12:23)
[2024-01-08] MEDS: CARAFATE 1 GRAM PO ×3 (08:33→16:24)
[2024-01-08] MEDS: FLOMAX 0.400000000000000022 MG PO (08:33)
[2024-01-08] MEDS: VITAMIN B-12 100 MCG PO (08:34)
[2024-01-08] MEDS: HEPARIN 5000 UNITS SC (08:34)
[2024-01-08] MEDS: SENOKOT-S 1 TABLET PO (08:34)
[2024-01-08] MEDS: PROSCAR 5 MG PO (08:34)
[2024-01-08] MEDS: MIRALAX 17 GRAMS PO (08:34)
[2024-01-08] MEDS: VIBRAMYCIN 100 MG PO (08:34)
[2024-01-08] MEDS: PROTONIX 40 MG PO (08:34)
[2024-01-08] MEDS: ASPIR LOW (ENTERIC COATED) 81 MG PO (08:34)
--- NOTE | 2024-01-08 10:10 | PTCARENOTE ---
TT'd Dr. Thomas regarding discontinuing Tom catheter that was place by him several days ago. Will discontinue as ordered.
--- NOTE | 2024-01-08 10:19 | W.PN.ID1 ---
Date of Service
Date of Service: January 08, 2024
Today's Communication
Continue 10-day course of doxycycline 100mg po bid through 01/14/24.
Assessment / Plan
# Tick bite
- Pulled an engorged tick from hip 1 week ago.
Unknown how long engorged tick embedded in hip.
Lyme screen negative, which is expected within 2 to 4 weeks of exposure.
- Continue 10-day course of doxycycline 100mg po bid through 01/14/24.
- Of note, his hypotension and bradycardia (w/o AV block) are NOT associated with tick-borne illness. Onset too early from time of presumed Borrelia exposure.
# Urinary retention/BPH
- Coude catheter placed 01/04/24
- Urine cx negative (before abx) -> not consistent with UTI/prostatitis.
# Heart failure with worsening EF
# s/p Hypotension - off dopamine
- No infectious etiology identified. Bcx neg, Ucx neg, CXR neg.
# Unintentional 30# weight loss over 2 weeks
# h/o Gastric bypass with chronic nausea, occasional vomiting
%Additional medical history
Atrial fibrillation
CAD s/p stents
Congestive heart failure
Hypertension
Hypercholesterolemia
Peptic ulcer disease
Colonic polyps (pre-cancerous)
History of bladder cancer
Anxiety/depression
Nephrolithiasis
GERD
Bladder ca s/p resection
Gastric bypass (2018)
PTX due to blebs s/p lung resection
Chief Complaint
-: Other (Tick bite)
Subjective / Review of Systems
Feels much improved. Hoping to go home soon.
Vital Signs / Physical Exam
Vital Signs
Vital Signs
Temp Pulse Resp BP Pulse Ox
97.7 F 67 20 108/82 95
01/08/24 07:19 01/08/24 08:33 01/08/24 06:00 01/08/24 08:33 01/08/24 06:00
Physical Exam
Constitutional: No Acute Distress and Comfortable
Pulmonary: Clear
Gastrointestinal: Soft, Non Tender, Non Distended and Normal Bowel Sounds
Genito-Urinary: Negative CVA Tenderness
Neurological: AO x 3
Objective Data
Lab Data
Lab Results
01/08/24 04:20
01/08/24 04:20
Estimated Creat Clear 59 ml/min 01/08/24 04:20
Lactic Acid 0.9 mmol/L (0.7-2.0) 01/05/24 03:25
Total Bilirubin 1.6 mg/dl (0.2-1.3) H 01/03/24 12:37
AST 19 U/L (17-59) 01/04/24 11:52
ALT 13 U/L (0-50) 01/04/24 11:52
Alkaline Phosphatase 57 U/L (38-126) 01/04/24 11:52
C-Reactive Protein < 5.00 mg/L (0.0-10.00) 01/03/24 12:37
Amylase 69 U/L (30-110) 01/04/24 11:52
Most recent labs reviewed.
Micro Results:
01/03/24 13:58 Blood Culture - Preliminary
Blood/Venous No Growth in 4 days- Final report to follow
01/03/24 13:58 Blood Culture - Preliminary
Blood/Venous No Growth in 4 days- Final report to follow
01/04/24 06:22 Urine Culture - Final
Urine
01/03/24 17:22 Urine Culture - Final
Urine No Significant Growth
Imaging:
01/04/24 CT a/p: Mild distention of the left intrarenal calyces and left renal pelvis which has increased since 07/12/2023. No CT evidence for obstructing left ureteral calculus. Large amount of bilateral perinephric edema and small amount of
nonloculated bilateral perinephric fluid which could be secondary to either chronic renal disease or acute pyelonephritis which is not definitively changed. Severe calcific atherosclerotic plaque in the abdominal aorta, iliac, and femoral arteries.
Fusiform infrarenal abdominal aortic aneurysm (2.7 cm AP dimension). Fusiform left common iliac artery aneurysm (1.9 cm short axis diameter). Moderate diffuse urinary bladder wall thickening (possibly secondary to underdistention given the presence
of a Tom catheter in the bladder lumen).
--- NOTE | 2024-01-08 11:49 | PTCARENOTE ---
Tom catheter removed as ordered. He was encourage to drink some fluids. He understands that he is to urinate in the urinal.
--- NOTE | 2024-01-08 13:19 | W.PN.HOSP.TC ---
Addendum entered and electronically signed by Jaswinder Preciado MD 01/08/24 15:49:
Patient was able to void after Tom catheter removal. Will discharge patient home with outpatient follow-up. Patient is aware that he needs to follow-up with cardiology soon outpatient. This was also addressed with sister over the phone. Our
cardiology here was okay with patient going home today.
Time of discharge 38 minutes
Original Note:
Today's Communication/Plan
-
monitor vitals
see plan
DC Tom and do voiding trial
Continue doxycycline
Discharge pending voiding trial
Daughter updated over the phone
Assessment / Plan
Assessment / Plan
HPI: 73-year-old male past medical history notable of A-fib, GERD, CHF; p/w low blood pressure. Patient states that he has chronic low blood pressure (normally systolic in the 100s), however in the morning when he took his blood pressure, he noticed
that his blood pressure was 70/62 and he felt dizzy and lightheaded. He follows at [facility]. He drove his down for her appointment, but is now too weak to drive back.
He endorsed to significant weight loss (30 pounds) in the last 2 weeks, and chronic L sided abdomen pain, associated with significant loss of appetite, nausea and occasional vomiting.
He has been unable to keep down any p.o. meds due to nausea and vomiting.
He is seeing oncologist at [facility], and is currently being worked up for possible stomach cancer; pending endoscopy and abdominal CT.
He denies to fever/chills, chest pain, shortness of breath.
He mentioned that he recently (2 weeks ago) got a tick bite on his left thigh area.
CT AP:
1. Mild distention of the left intrarenal calyces and left renal pelvis which has increased since 07/12/2023. No CT evidence for obstructing left ureteral calculus. Large amount of bilateral perinephric edema and small amount of nonloculated
bilateral perinephric fluid which could be secondary to either chronic renal disease or acute pyelonephritis which is not definitively changed.
2. Severe calcific atherosclerotic plaque in the abdominal aorta, iliac, and femoral arteries. Fusiform infrarenal abdominal aortic aneurysm (2.7 cm AP dimension). Fusiform left common iliac artery aneurysm (1.9 cm short axis diameter).
3. Moderate amount of fecal material and distention of the colon suggesting constipation. Moderate diverticulosis in the descending and sigmoid colon.
4. Cholelithiasis.
5. 3.8 cm left adrenal adenoma.
6. Previous gastric bypass surgery.
7. Moderate diffuse urinary bladder wall thickening (possibly secondary to underdistention given the presence of a Tom catheter in the bladder lumen).
A/P:
# Acute on chronic hypotension likely due to dehydration and now bradycardia
# Shock likely cardiogenic
# Non-sustained VT
CRP neg, TSH WNL at 1.44, random cortisol level WNL at 24
Procal neg, COVID neg, Lyme serology negative (patient endorsed recent tick bite).
Since CRP neg, infectious cause less likely
Blood Cx neg
first urine Cx no significant growth, second with contamination
off empiric ceftriaxone
ID on board
s/p IVF without significant improvement in BP
Dopamine drip was started for bradycardia and cardiogenic shock, now off dopamine drip and non-sustained VT has not recurred
Continue high dose midodrine 10mg TID for BP support
Echo noted severely reduced left ventricular systolic function. EF 30-35%.
Hold CHEMICAL PLANT MANAGER Lasix, Coreg, lisinopril; discussed with cardiology and will hold these medication and have patient follow-up with his box covering machine operator closely outpatient.
Fruit Thinner on board
PT OT eval
Continue 10-day course of doxycycline 100mg po bid through 01/14/24
Pt started with doxycycline by ID to cover for Lyme's disease.
Timing of exposure may be too soon for Lyme serology to turn positive
# Acute urinary retention
CT AP without obstructing left ureteral calculus. Large amount of bilateral perinephric edema and small amount of nonloculated bilateral perinephric fluid which could be secondary to either chronic renal disease or acute pyelonephritis which is not
definitively changed.
first urine Cx no significant growth, second with contamination
Off empiric ceftriaxone
Tom placed by Uro due to resistance when attempted by RN; discontinue Tom catheter and do voiding trial, if pass then can do dc planning
Cont Proscar and Flomax (with holding parameter)
# decreased appetite, abdominal pain, nausea and possibly vomiting ; likely due to underlying cancer with constipation noted on CT AP
# Severe protein caloric malnutrition
He follows oncology at [place]
He is awaiting work up for possible stomach cancer with an endoscopy and abdominal CT
Of note, patient had an upper endoscopy 07/10 at which noted Amberg-colored mucosa suspicious for short-segment Noble's esophagus. Normal stomach and anastomosis. Non-bleeding jejunal ulcer with no stigmata of bleeding.
Continue prior to admission mirtazapine
Cont regular diet
Started bowel regimen Dulcolax x1, Senokot-S BID, Miralax daily
# DEVIN from dehydration/poor p.o. intake, resolved
serum creatinine 1.7 -> 1.0, baseline from 06/2023 at 1.0
# Bradycardia with likely chronic A fib
EKG with A fib but slow HR
Echo noted severely reduced left ventricular systolic function. EF 30-35%.
Off Dopamine drip as stated above
Card on board
# Mild Hyponatremia, resolved
Monitor
# Mild hyperkalemia , resolved
# Hypothermia likely due to poor body reserve with severe protein caloric malnutrition on admission , resolved
rebecca hugger PRN
# Incidental finding of 3.8 cm left adrenal adenoma.
Informed pt and family that he can follow up with endo outpt for this
# Severe calcific atherosclerotic plaque in the abdominal aorta, iliac, and femoral arteries. Fusiform infrarenal abdominal aortic aneurysm (2.7 cm AP dimension). Fusiform left common iliac artery aneurysm (1.9 cm short axis diameter).
Informed pt and family that he can follow up with vascular surgeon outpt for this
Chronic medical conditions
# History of peptic ulcer disease/GERD
# History of gastric bypass
Continue prior to admission Protonix twice daily and Carafate
# Atrial fibrillation unspecified type
Hold CHEMICAL PLANT MANAGER coreg
He no longer is on Eliquis due to cost (his outpatient box covering machine operator is aware of this, and is okay with holding off Eliquis)
# Coronary disease status post stents x2
# Chronic heart failure unspecified type
# Essential hypertension
Hold CHEMICAL PLANT MANAGER Coreg, Lasix, lisinopril due to hypotension
# Bladder cancer
# Hypercholesterolemia
Continue statin
# History of kidney stones
# Anxiety/depression
Continue mirtazapine
# History of gastric bypass surgery 6 years ago
Full code
DVT prophylaxis� HSQ
General: Well Developed, No Apparent Distress, Comfortable, Conversant, Appears Chronically Ill and Cachectic
HEENT: Normocephalic and Atraumatic
Respiratory: Clear to Auscultation and Non Labored Respirations; Negative Wheezes, Rales, Rhonchi or Accessory Resp Muscle Use
Cardiac: S1/S2 and Irregular Rhythm
GI: Soft, Nontender, Nondistended and Normal Bowel Sounds
Musculoskeletal: No Clubbing, No Cyanosis and No Edema
Skin: Warm and Dry
Neuro: Awake, Alert and Oriented
Psych: Calm and Intact Judgement/Insight
I spent a total of 53 minutes with the patient or on the floor. More than 50% of this time involved counseling and coordination of care.
Anticipated Discharge: Within 24 hours
Subjective/Interval History
-
Date of Service: January 08, 2024
Denies pain
Objective Data
-
Labs:
Laboratory Results
01/08/24
04:20
WBC 5.2
Hgb 11.5 L
Hct 36.3 L
Plt Count 134
Sodium 133 L
Potassium 5.0
Chloride 103
Carbon Dioxide 28
BUN 23 H
Creatinine 1.0
Glucose 81
Calcium 8.8
Vital Signs:
Vital Signs
Temp Pulse Resp BP Pulse Ox
97.7 F 62 20 128/87 95
01/08/24 07:19 01/08/24 12:23 01/08/24 06:00 01/08/24 12:23 01/08/24 06:00
I&O
01/07/24 01/08/24 01/09/24
06:59 06:59 06:59
Intake Total 511.3 / 511.3 450 / 450
Output Total 875 / 875 650 / 650 125 / 125
Balance -363.7 / -363.7 -200 / -200 -125 / -125
--- NOTE | 2024-01-08 13:27 | PTCARENOTE ---
0700 patient in bed. Indwelling Tom draining gera clear urine. BP 104/68 MAP 79 A/fib 51; RA 97%. No edema. Denies nausea. Poor appetite. Carafate administered before meals. Poor appetite. RT PICC line capped, flushed. pt able to transfe himself
to the chair. call [facility] within reach
--- NOTE | 2024-01-08 15:12 | CM ---
Addendum entered by Traci Floyd 01/08/24 15:46:
Release of records form provided to pt per request
Original Note:
CM reviewed chart and possible dc today
[facility] [phone] to follow up on referrals
Clinicals faxed per their request as unable to access [facility] [phone]
Pt accepted for service
Bedside meeting with pt
Declined VN noting independence throughout room
IMM verbally completed- copy provided
Discharge Disposition- home no needs- family transport
--- NOTE | 2024-01-08 15:43 | PTCARENOTE ---
Indwelling Tom d/c earlier today. PO fluid intake 480 cc of apple juice. pt voided 50cc gera urine . Post void scanned for 23cc.
--- NOTE | 2024-01-08 15:47 | W.DCSUMMARY ---
Discharge Summary
Discharge Data
Date of Admission: 01/03/24
Date of Discharge: 01/08/24
-
Pending Results: No
Hospital Course
73-year-old male with past medical history of GERD, CHF, A-fib, cardiomyopathy, gastric bypass, atrial fibrillation, CAD, CHF, bladder cancer, hyperlipidemia, anxiety, depression came to the hospital with acute on chronic hypotension which was
admission. Patient was found to be in cardiogenic shock and was seen by cardiology and was started on dopamine patient later developed nonsustained ventricular tachycardia so dopamine was discontinued. Patient also had acute urinary retention for
which she was seen by urology and had Tom catheter initially which was taken out prior to discharge. Patient was able to void prior to discharge. Patient blood pressure was persistently low so was started on midodrine. Echocardiogram was done
which showed severely reduced ejection fraction of 30 to 35%. Patient Lasix, Coreg and lisinopril was held. Patient was seen by cardiology throughout hospitalization and was instructed to follow-up closely with his outpatient meat counter clerk at
[facility]. Patient was also followed up by infectious disease who thought patient had a recent tick bite and Lyme serologies can be negative. Given these findings patient was started on doxycycline. There was also suspicion of patient having
possibility of underlying malignancy. Patient already had follow-up with oncology at [facility] and wanted to follow-up with them outpatient. Once patient heart rate and blood pressure was improving, he was then discharged home with
instructions to follow-up closely with all his physicians at [facility] and his primary care provider outpatient.
Discharge Plan
-
Patient Disposition: Home (Routine Discharge)
Discharge Diagnosis/Procedures: Acute on chronic hypotension
Shock likely cardiogenic
Nonsustained ventricular tachycardia
Acute urinary retention
Incidental finding of 3.8 cm left adrenal adenoma
Bradycardia
Ischemic cardiomyopathy
Tick bite
Diet: As tolerated
Activity: As tolerated
Driving Restrictions: As prior to admission
Bathing Restrictions: None
Activity Restrictions/Additional Instructions:
Please follow-up with your primary care provider and meat counter clerk at [facility] soon outpatient
Referrals:
John Song DO [Active] -
NONE,* [Family Provider] - in less than 1 week
Alexandro Sinha MD [Active] -
Shailesh Alvarez MD [Active] - None
()
Prescriptions:
New
doxycycline hyclate 100 mg Capsule
100 mg PO Q12 Qty: 14 0RF
polyethylene glycol 3350 [HealthyLax] 17 gram Powder In Packet
17 g PO DAILY Qty: 30 0RF
sennosides-docusate sodium [Stool Softener-Stimulant Laxat] 8.6-50 mg Tablet
1 tab PO BID Qty: 60 0RF
midodrine 5 mg Tablet
10 mg PO TID@0800,1300,1800 Qty: 90 0RF
tamsulosin 0.4 mg Capsule
0.4 mg PO DAILY Qty: 30 0RF
finasteride 5 mg Tablet
5 mg PO DAILY Qty: 30 0RF
Continued
atorvastatin 40 mg Tablet
40 mg PO HS
cyanocobalamin (vitamin B-12) 100 mcg Tablet
100 mcg PO DAILY
ascorbic acid (vitamin C) [Vitamin C] 500 mg Tablet
500 mg PO DAILY
brimonidine 0.2 % Drops
1 drp BOTH EYES HS
vitamin B complex Tablet
1 tab PO DAILY
mirtazapine 15 mg Tablet
15 mg PO HS
timolol maleate 0.5 % Drops
1 drp BOTH EYES HS
pantoprazole 40 mg Tablet,Delayed Release (Dr/Ec)
40 mg PO BID 30 Days Qty: 60 0RF
sucralfate 1 gram tablet
1 g PO ACHS Qty: 90 0RF
aspirin 81 mg Tablet,Delayed Release (Dr/Ec)
81 mg PO DAILY
dorzolamide 2 % Drops
1 drp BOTH EYES HS
Held
carvedilol 3.125 mg Tablet
3.125 mg PO BID
Hold Instructions: Until instructed to be taken by cardiology
lisinopril 2.5 mg tablet
2.5 mg PO DAILY Qty: 30 0RF
Hold Instructions: Until instructed to be taken by cardiology
furosemide [Lasix] 40 mg tablet
40 mg PO DAILY Qty: 30 0RF
Hold Instructions: Until instructed to be taken by cardiology
Discontinued
potassium chloride [Klor-Con 10] 10 mEq Tablet Extended Release
10 meq PO BID
Discharge Orders:
Discharge Patient (As Directed); Ordered 01/08/24
Ordered By: Jaswinder Preciado
Discharge Date and Time
Discharge Date/Time: 01/08/24 18:50
Print Language: MALTESE
--- NOTE | 2024-01-08 16:42 | PTCARENOTE ---
Patient AAO x3. Denies nausea no vomiting. Tolerating food and liquid without difficulties. continues with poor appetite. BP 123/81 MAP 82. Afib 42-64 with very brief episode of Afib 32. patient asymptomatic. RT central line removed by IV team, 4x4
covered by tegaderm intact. patient is aware that he will need to close monitor himself if he is able to void after discharge .
--- NOTE | 2024-01-08 18:36 | PTCARENOTE ---
Patient seen last time at 1800 while OOB in a chair. D/c instruction packet printed. patient was offered to go over all d/c instructions, however patient requested to wait for his daughter to come in and go over all d/c instructions with her and
him. patient was ask to call for nursing staff when his daughter will arrive. pt agreeable. At 18:30 went to patient's room to administer midodrine. patient not in a room, printed d/c instructions no longer found in a room. Appears as if patient
took his d/c instructions with him, left the hospital without notifying nursing staff.
--- NOTE | 2024-01-08 19:07 | PTCARENOTE ---
called Karen Wilson . Karen is aware that patient left hospital withot going over his discharge instructions. Karen is aware that 1800 dose of midodrine was missed/
== END 2024-01-08 18:50 | disposition home or self-care (01) | DRG 314 ==
LOC: ICU 16:37
PROVIDERS: Emergency Medicine; Nurse Practitioner; Nurse Practitioner Gerontology; Physician Assistant; Radiology Diagnostic Radiology; ADMITTING PHYSICIAN Internal Medicine; ATTENDING PHYSICIAN Internal Medicine; CONSULT PHYSICIAN Internal Medicine Cardiovascular Disease; CONSULT PHYSICIAN Urology; EMERGENCY PHYSICIAN Emergency Medicine; OTHER PHYSICIAN Internal Medicine Infectious Disease; OTHER PHYSICIAN Internal Medicine Pulmonary Disease
PROC: 02HV33Z Insertion of Infusion Device into Superior Vena Cava, Percutaneous Approach (ICD-10-PCS; 2024-01-05)
DX: I95.89 Other hypotension (principal); E43 Unspecified severe protein-calorie malnutrition; R57.0 Cardiogenic shock; N17.9 Acute kidney failure, unspecified; I48.21 Permanent atrial fibrillation; N13.8 Other obstructive and reflux uropathy; N39.0 Urinary tract infection, site not specified; I47.20 Ventricular tachycardia, unspecified; E87.20 Acidosis, unspecified; E87.1 Hypo-osmolality and hyponatremia; E86.0 Dehydration; I11.0 Hypertensive heart disease with heart failure; I50.9 Heart failure, unspecified; K21.9 Gastro-esophageal reflux disease without esophagitis; D64.9 Anemia, unspecified; I25.10 Atherosclerotic heart disease of native coronary artery without angina pectoris; F32.A Depression, unspecified; F41.9 Anxiety disorder, unspecified; E87.5 Hyperkalemia; N40.1 Benign prostatic hyperplasia with lower urinary tract symptoms; R68.0 Hypothermia, not associated with low environmental temperature; I71.43 Infrarenal abdominal aortic aneurysm, without rupture; I72.3 Aneurysm of iliac artery; E11.9 Type 2 diabetes mellitus without complications; E78.00 Pure hypercholesterolemia, unspecified; D35.02 Benign neoplasm of left adrenal gland; I25.5 Ischemic cardiomyopathy; K80.20 Calculus of gallbladder without cholecystitis without obstruction; S70.262A Insect bite (nonvenomous), left hip, initial encounter; W57.XXXA Bitten or stung by nonvenomous insect and other nonvenomous arthropods, initial encounter; Y93.9 Activity, unspecified; Z79.01 Long term (current) use of anticoagulants; Z98.84 Bariatric surgery status; Z87.11 Personal history of peptic ulcer disease; Z87.442 Personal history of urinary calculi; Z87.19 Personal history of other diseases of the digestive system; Z79.82 Long term (current) use of aspirin; Z87.891 Personal history of nicotine dependence; Z95.5 Presence of coronary angioplasty implant and graft; Z85.51 Personal history of malignant neoplasm of bladder; Z11.52 Encounter for screening for COVID-19; Z68.21 Body mass index [BMI] 21.0-21.9, adult
CPT/HCPCS: 71045; 74176; 80048; 80053; 80069; 81003; 81015; 82150; 82533; 83605; 83690; 83735; 84075; 84145; 84443; 84450; 84460; 84484; 85025; 85027; 86140; 86618; 87040; 87086; 87811; 93005; 93306; 94640; 96360; 96361; 97116; 97163; 97167; 97530; 99284